=== PATIENT | female | born 1990 | race Caucasian/White ===

== ENCOUNTER → 2019-06-14 08:30 | Outpatient (BNVA) | payer MEDICAID, SELFPAY | PROVIDERS: Visit Provider Nurse Practitioner Women's Health | DX: O09.212 Supervision of pregnancy with history of pre-term labor, second trimester (principal); O23.591 Infection of other part of genital tract in pregnancy, first trimester; O98.419 Viral hepatitis complicating pregnancy, unspecified trimester; B18.2 Chronic viral hepatitis C; A59.9 Trichomoniasis, unspecified; A59.01 Trichomonal vulvovaginitis; O99.810 Abnormal glucose complicating pregnancy; O99.332 Smoking (tobacco) complicating pregnancy, second trimester | CPT/HCPCS: 84315; 87661 ==

== ENCOUNTER → 2019-07-17 08:58 | Outpatient (BNVA) | payer MEDICAID, SELFPAY | PROVIDERS: Visit Provider Obstetrics & Gynecology | DX: O09.212 Supervision of pregnancy with history of pre-term labor, second trimester (principal); Z3A.00 Weeks of gestation of pregnancy not specified | CPT/HCPCS: 76805 ==

== ENCOUNTER → 2019-07-20 08:50 | Outpatient (BNVA) | payer MEDICAID, SELFPAY | PROVIDERS: Visit Provider Obstetrics & Gynecology | DX: Z01.89 Encounter for other specified special examinations (principal) | CPT/HCPCS: 84315 ==

== ENCOUNTER → 2019-08-13 10:16 | Outpatient (BNVA) | payer MEDICAID, SELFPAY | PROVIDERS: Visit Provider Obstetrics & Gynecology | DX: O09.212 Supervision of pregnancy with history of pre-term labor, second trimester (principal); Z30.09 Encounter for other general counseling and advice on contraception | CPT/HCPCS: 82950; 84315 ==

== ENCOUNTER → 2019-08-16 08:44 | Outpatient (BNVA) | payer MEDICAID, SELFPAY | PROVIDERS: Visit Provider Obstetrics & Gynecology | DX: O09.212 Supervision of pregnancy with history of pre-term labor, second trimester (principal) | CPT/HCPCS: 82951; 82952 ==

== ENCOUNTER → 2019-09-10 08:30 | Outpatient (BNVA) | payer MEDICAID, SELFPAY | PROVIDERS: Visit Provider Obstetrics & Gynecology Female Pelvic Medicine and Reconstructive Surgery | DX: Z34.90 Encounter for supervision of normal pregnancy, unspecified, unspecified trimester (principal); O09.212 Supervision of pregnancy with history of pre-term labor, second trimester; O99.810 Abnormal glucose complicating pregnancy; O09.213 Supervision of pregnancy with history of pre-term labor, third trimester; R73.02 Impaired glucose tolerance (oral) | CPT/HCPCS: 83036; 84315; 85027 ==

== ENCOUNTER → 2019-09-27 10:44 | Outpatient (BNVA) | payer MEDICAID, SELFPAY | PROVIDERS: Visit Provider Obstetrics & Gynecology | DX: Z34.90 Encounter for supervision of normal pregnancy, unspecified, unspecified trimester (principal) | CPT/HCPCS: 76816; 84315 ==

== ENCOUNTER → 2019-10-12 08:25 | Outpatient (BNVA) | payer MEDICAID, SELFPAY | PROVIDERS: Visit Provider Obstetrics & Gynecology | DX: O09.213 Supervision of pregnancy with history of pre-term labor, third trimester (principal); N89.8 Other specified noninflammatory disorders of vagina | CPT/HCPCS: 83986; 84315 ==

== ENCOUNTER → 2019-11-02 13:23 | Outpatient (BNVA) | payer MEDICAID, SELFPAY | PROVIDERS: Visit Provider Obstetrics & Gynecology | DX: O09.213 Supervision of pregnancy with history of pre-term labor, third trimester (principal) | CPT/HCPCS: 84315; 87081 ==

== ENCOUNTER 2019-11-11 16:35 | Outpatient (CLI) | payer MEDICAID, SELFPAY ==
[2019-11-11] VITALS (14 sets, daily range): BP systolic 0–145; BP diastolic 0–81; PULSE 87–107; RESP 16; TEMP 37; BMI 41.0
--- NOTE | 2019-11-11 18:30 | P.PCN_ITS ---
Procedure/Consent Procedure Narrative: NONSTRESS TEST: [place] [facility] [place]ication: 29-year-old 3 para 2-0-0-2 at 37 weeks and 3 days, abdominal pain, possible contractions Date and time of test: 11/11/2019, 6 PM Baseline: 135 Variability: Moderate variability Accelerations: Present Decelerations: None Tocometry: Contractions every 2 to 5 minutes. INTERPRETATION: NST reactive, reassuring status, continue kick counts
== END 2019-11-11 19:28 | disposition home or self-care (01) ==
LOC: OPOB 16:37 → OBGYN 16:37
PROVIDERS: Visit Provider Obstetrics & Gynecology
DX: O26.899 Other specified pregnancy related conditions, unspecified trimester (principal); Z3A.00 Weeks of gestation of pregnancy not specified; R10.9 Unspecified abdominal pain
CPT/HCPCS: 12345; 59025; 99211

== ENCOUNTER 2019-11-13 11:50 | Outpatient (CLI) | payer MEDICAID, SELFPAY ==
[2019-11-13] VITALS (15 sets, daily range): BP systolic 0–151; BP diastolic 0–90; PULSE 61–82; RESP 17–18; BMI 41.1
[2019-11-13] MEDS: hyDROXYzine 25 mg Capsule 50 MG PO (14:28)
--- NOTE | 2019-11-13 14:35 | PM.ACPR ---
Procedure/Consent Procedure Narrative: NONSTRESS TEST: Place of test: [facility] [place] Indication: 29-year-old 3 para 2-0-0-2 at 37 weeks and 5 days, abdominal pain and vaginal spotting Date and time of test: 11/13/2019, 1 PM. Baseline: 135 Variability: Moderate variability Accelerations: Accelerations present Decelerations: No decelerations Tocometry: Irregular contractions every 2 to 6 minutes INTERPRETATION: NST reactive, reassuring status, continue kick counts
== END 2019-11-13 14:35 | disposition home or self-care (01) ==
LOC: OPOB 11:58 → OBGYN 11:59
PROVIDERS: Visit Provider Obstetrics & Gynecology
DX: O26.899 Other specified pregnancy related conditions, unspecified trimester (principal); Z3A.00 Weeks of gestation of pregnancy not specified; R10.9 Unspecified abdominal pain
CPT/HCPCS: 12345; 59025; 99211

== ENCOUNTER → 2019-11-16 13:52 | Outpatient (BNVA) | payer MEDICAID, SELFPAY | PROVIDERS: Visit Provider Obstetrics & Gynecology | DX: Z34.90 Encounter for supervision of normal pregnancy, unspecified, unspecified trimester (principal) | CPT/HCPCS: 76816; 84315 ==

== ENCOUNTER 2019-11-19 19:54 | Inpatient (IN) | payer MEDICAID, SELFPAY ==
[2019-11-19] VITALS (23 sets, daily range): BP systolic 0–145; BP diastolic 0–83; PULSE 62–109; RESP 15–17; TEMP 36.7–37.1; O2SAT 100; BMI 41.1
--- NOTE | 2019-11-19 16:47 | PC.NURSE ---
Pt off monitors at this time. Pt encouraged to ambulate until 1800. Pt instructed to return to the room or notify this nurse with any concerns or if her membranes rupture. Pt verbalized understanding.
--- NOTE | 2019-11-19 17:13 | PC.NURSE ---
Visitor policy Patient and significant other were informed of the hospital visitor policy. They both verbalized understanding.
[2019-11-19] MEDS: lactated ringers 1,000 ML 999 ML IV ×2 (20:20→21:02)
[2019-11-19 20:26] LABS: Basophils # 0.1 10^3/uL (0.0-0.1); Basophils % 0.4 %; Eosinophils # 0.1 10^3/uL (0.0-0.8); Eosinophils % 0.6 %; Hematocrit 32.9 % (37.0-47.0); Hemoglobin 10.7 g/dL (11.5-15.3); Lymphocytes # 2.2 10^3/uL (0.8-4.8); Lymphocytes % 16.2 %; Mean Corpuscular HGB Conc 32.5 g/dL (30.0-36.0); Mean Corpuscular Hemoglobin 29.3 pg (28.0-34.0); Mean Corpuscular Volume 90.1 fL (81-99); Mean Platelet Volume 11.2 fL (7.4-10.4); Monocytes # 0.6 10^3/uL (0.2-0.9); Monocytes % 4.7 %; Neutrophils # 10.5 10^3/uL (1.8-7.7); Neutrophils % 77.4 %; Nucleated Red Blood Cells % 0 %; Platelet Count 260 10^3/cmm (130-400); Red Blood Count 3.65 10^6/uL (4.1-5.3); Red Cell Distribution Width 14.5 % (12.1-15.1); White Blood Count 13.5 10^3/uL (4.0-10.0)
[2019-11-19] MEDS: ondansetron 2 mg/ML SDV 2 mL 4 MG IVP (21:01)
[2019-11-19] MEDS: oxytocin 30 UNIT/500 ML BAG 600 UNIT IV (21:41)
--- NOTE | 2019-11-19 21:45 | PM.DELIVERY ---
Delivery Note: Date of delivery: November 19, 2019 Pre-delivery diagnoses: term . desire permanent sterilization Post-delivery diagnoses: term delivered. desire permanent sterilization Procedure: spontaneous vaginal delivery Op report anesthesia: None Delivering Physician: Frederick uJng M.D. Estimated blood loss (mL): 500 Delivery: The patient was noted to be complete and pushing, so was placed in the dorsal lithotomy position, prepped and draped in the usual sterile fashion for a vaginal delivery. Pt. Noted to have epidural anesthesia. At 2020 the patient delivered a viable at 38 weeks male infant weighing 3221 g with scores of 9 and 9 at one and five minutes, respectively. The vertex was delivered spontaneously over intact perineum. The patient was asked to push and the head delivered spontaneously in the LIEN position, over an intact perineum. A nuchal cord was checked and none noted. The anterior shoulder delivered easily and the posterior shoulder followed. The remainder of the was easily delivered and the oropharynx and nasopharynx was bulb suctioned. The was noted to have spontaneous cry and spontaneous movement of all four extremities. The cord was clamped x 2 and cut and noted to have 2 arteries and one vein. The was passed to the mother's abdomen where nursing personnel were in attendance. Cord blood sample was then obtained. The placenta delivered intact spontaneously and the uterus was explored. 20 units of Pitocin was placed in the IV bag to firm the uterus. Examination of the cervix and vaginal vault did not reveal any lacerations. A vaginal pack was then placed. Examination of the perineum showed no lacerations. The vaginal pack was then removed. The patient tolerated this procedure well, and recovered in L&D with her to the OB [facility]. All sponge and needle counts were correct. 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
--- NOTE | 2019-11-19 21:50 | P.PN_ITS ---
Subjective Subjective: Interval history: 29-year-old female status post spontaneous vaginal delivery without complications. Desire permanent sterilization. Vitals/I&O/Wt Last Vital Signs Temp 98.5 F 11/19/19 19:45 Pulse 72 11/19/19 21:44 Resp 17 11/19/19 19:45 BP 134/69 11/19/19 21:44 Pulse Ox 100 11/19/19 16:31 11/19/19 11/19/19 11/19/19 06:59 14:59 22:59 Intake Total 939.3 / 939.3 Balance 939.3 / 939.3 Weight last 48 hrs Weight 108.862 kg Physical Exam Narrative: EXAM NARRATIVE: GA; alert and oriented x 3 HEENT: normal Breasts: engorged Nipples - skin intact Lungs; clear to auscultation Heart: regular rhythm, no murmurs. Abd: Appropriately tender. BS+. Uterine fundus below umbilicus. No Fundal Tenderness. Perineum: normal lochia. Extremities: no edema, no cyanosis, no tenderness. Data : 11/19/19 20:05 A&P Assessment and plan (1) Term delivered: containers vaginal delivery without complications. Desire permanent sterilization Status: Acute (2) Sterilization education: 29-year-old female -2-1-3 status post spontaneous vaginal delivery desire permanent sterilization requesting tubal ligation. The patient was counseled regarding all methods of contraception, risk and complications. She elected to continue to proceed with the tubal ligation as planned. partial salpingectomy is associated with lower failure rates than interval tubal occlusions done via laparoscopy. She was counseled regarding the procedure, alternative, risks and complications. Complications of tubal sterilization include problems like but not limited to anesthesia, hemorrhage, organ damage, and mortality. Although pregnancies after a sterilization procedure are rare, there is substantial risk that any post- sterilization could be ectopic. The overall failure rate is on the ord er of 0.5% in the first year but a study showed that sterilization failures vary by both age at sterilization and the method used. The study also found that the risks of accumulate over time, and that for women aged 18 to 27 years, failure rates can be as high as 5% with bipolar coagulation and the spring clip. The patient was informed of the risks and benefits of the procedure. Risks in cluded but were not limited to bleeding, infection, and injury to internal organs. The patient was counseled on the risk of sterilization failure. The patient was informed that in the event a occurs the risk of ectopic is increased. The patient was counseled that bilateral tubal ligation is intended to be permanent and nonreversible. She was also counseled that there are nonpermanent forms of control available to her. The patient expressed understanding of the risks involved, all questions were answered, and the patient consented to the procedure she had signed informed consent. 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
[2019-11-19] MEDS: ketorolac 30 mg/mL INJ IVP (22:36)
[2019-11-20] VITALS (15 sets, daily range): BP systolic 96–152; BP diastolic 51–92; PULSE 62–127; RESP 14–22; TEMP 36.5–37; O2SAT 95–99
[2019-11-20] MEDS: lanolin oint 7 gm 1 APPLIC TOPICAL (00:07)
[2019-11-20] MEDS: benzocaine-menthol 78 gm Canister 1 SPRAY TOPICAL (00:07)
[2019-11-20 01:04] LABS: Amphetamines Screen Urine Negative (Negative); Barbiturates Screen Urine Negative (Negative); Benzodiazepines Screen Urine Negative (Negative); Cocaine Screen Urine Negative (Negative); Opiate Screen Urine Negative (Negative); PCP Screen Urine Negative (Negative); THC Screen Urine Negative (Negative)
[2019-11-20] MEDS: lactated ringers 1,000 ML 999 ML IV ×3 (05:41→07:16)
--- NOTE | 2019-11-20 06:47 | PC.NURSE ---
patient taken to [facility] in stable condition in wheelchair by [facility]
--- NOTE | 2019-11-20 07:01 | P.ANESASSM_ITS ---
Pre-Anesthetic Assessment Pre-Anesthetic Assessment: Height/Weight: Height 1.63 m Weight 108.862 kg Temp Pulse Resp BP Pulse Ox 98.6 F 85 17 117/70 100 11/20/19 05:45 11/20/19 05:45 11/20/19 05:45 11/20/19 05:45 11/19/19 16:31 Preop Diagnosis: desire permanent sterilization Proposed Procedure: Operation Date: 11/20/19 07:00 Proposed Procedures p Bilateral Tubal Ligation(Not Applicable) - Frederick Jung MD Last intake: Intake Last Liquid Date 11/19/19 Last Liquid Time 23:45 Last Solid Date 11/19/19 Last Solid Time 23:30 Social: Social History: Tobacco and No alcohol Exam: Pre-Anes Outpt Exam: alert, oriented x 3, clear to auscultation bilaterally and regular rate & rhythm Airway: Submandibular: WNL Cervical ROM: WNL MP: 1 Dentition: Full and Other (teeth ok) History/ROS: No significant history except as noted Pulmonary: Pulmonary: None reported CV/HEM: CV/HEM: None reported : : None reported Hepatic: Hepatic: Hepatitis (C) GI: GI: GERD Metabolic: Metabolic: Morbid obesity Musc/skel: Musc/skel: None reported Neuropsych: Neuropsych: None reported Anesthetic Plan: ASA status: 2 Anesthesia: Anesthesia Evaluation and General Risk of > 500 ml blood loss (7ml/kg in children): No Meds/Allergies Current Medications: Current Medications Generic Name Dose Route Start Last Admin Trade Name Freq PRN Reason Stop Dose Admin Benzocaine 1 spray 11/19/19 21:43 11/20/19 00:07 Dermoplast TOPICAL 1 can PRN PRN Administration PAIN Oxytocin 30 unit in 500 ml s @ 600 mls/hr 11/19/19 19:45 11/19/19 23:30 Pitocin IV Infused .Q50M PRN Titration After delivery of infant Protocol Lactated Ringer's 1,000 mls @ 999 m ls/hr 11/19/19 19:47 11/20/19 06:48 Lactated Ringers IV 999 mls/hr .Q1H1M PRN Administration ANESTHESIA Lanolin 1 applic 11/19/19 21:43 11/20/19 00:07 Lanolin Oint TOPICAL 1 tube PRN PRN Administration DRYNESS Ondansetron HCl 4 mg 11/19/19 19:45 11/19/19 21:01 Zofran IVP 4 mg Q4H PRN Administration NAUSEA AND VOMITI NG PFSH Anesthesia PFSH: Medical History Hepatitis C infection 05/01/2019: Hepatitis C antibody positive. 05/10/2019: Hepatitis C quantitative PCR: Negative. History of delivery First baby delivered at 36 weeks Second baby delivered at 34 weeks Both pregnancies Kat was used Trichomonal vaginitis during in first trimester Surgical History No history of previous surgery Family History Grandmother Diabetes maternal Family/Other Patient denies medical problems Denies family history of: breast/ovarian/uterine/colon/prostate cancer Social History Smoking and tobacco status: current every day smoker cigarettes [ Other cigarette details: 3 per day ] Alcohol intake: never Female Reproductive History: : 3 Data Anesthesia CBC & Chem 7: 11/19/19 20:05 Other Labs: Laboratory Results - last 48 hr 11/19/19 11/20/19 20:05 00:30 WBC 13.5 H RBC 3.65 L Hgb 10.7 L Hct 32.9 L MCV 90.1 MCH 29.3 MCHC 32.5 RDW 14.5 Plt Count 260 MPV 11.2 H Neut % (Auto) 77.4 Lymph % (Auto) 16.2 [place] % (Auto) 4.7 Eos % (Auto) 0.6 Baso % (Auto) 0.4 Neut # (Auto) 10.5 H Lymph # (Auto) 2.2 [place] # (Auto) 0.6 Eos # (Auto) 0.1 Baso # (Auto) 0.1 Nucleated RBC % (auto) 0 Nucleated RBCs # 0.0 Urine Opiates Screen Negative Ur Barbiturates Screen Negative Ur Phencyclidine Scrn Negative Ur Amphetamines Screen Negative U Benzodiazepines Scrn Negative Urine Cocaine Screen Negative U Marijuana (THC) Screen Negative Cardiac Studies: No Data to Display
--- NOTE | 2019-11-20 07:08 | PC.NURSE ---
Report called to [facility] at this time in main OR.
[2019-11-20] MEDS: citric acid-sodium citrate 30 mL UDC PO (07:16)
[2019-11-20] MEDS: famotidine 20 mg/2 mL INJ IVP (07:17)
[2019-11-20] MEDS: metoclopramide 5 mg/mL SDV 2 mL 10 MG IVP (07:17)
--- NOTE | 2019-11-20 08:16 | P.OP_ITS ---
Operative Report Date of procedure: November 20, 2019 Pre-op Diagnosis: desire permanent sterilization, s/p spontaneous vaginal delivery Post-op diagnosis: same Post-op Findings: Normal left and right fallopian tube Procedure Done: bilateral partial salpingectomy Specimens removed/disposition: Left and right fallopian tube Surgeon: Frederick Jung Anesthesia: General Estimated blood loss (mL): 5 IV fluids (mL): 300 Complications: none Condition: stable Disposition: PACU Brief History: 29-year-old female status post continues vaginal delivery Procedure: After assuring informed consent. The patient was informed of the risks and benefits of the procedure. Risks included but were not limited to bleeding, infection, and injury to internal organs. The patient was counseled on the risk of sterilization failure. The patient was informed that in the event a occurs the risk of ectopic is increased. The patient was counseled that bilateral tubal ligation is intended to be permanent and nonreversible. She was also counseled that there are nonpermanent forms of control available to her. The patient expressed understanding of the risks involved, all questions were answered, and the patient consented to the proce dure. The patient was taken to the operating room and general anesthesia administered. Time-out procedure was performed. A small, transverse, infraumbilical skin incision was made with a scalpel, and the incision was carried down through the underlying fascia until the peritoneum was identified and entered. The left fallopian tube was identified, brought into the incision and grasped with a Pawan clamp. The tube was then followed out to the fimbria. An avascular midsection of the fallopian tube was grasped with a Huntington clamp and brought into a knuckle. The tube was doubly ligated with an O-plain suture and transected. The specimen was sent to pathology. Excellent hemostasis was noted, and the tube was returned to the abdomen. The same procedure was performed on the opposite fallopian tube. The fascia was then closed with O- Vicryl in a single layer. The skin was closed with 3-O Monocryl in a subcuticular fashion, and bioadhesive. The patient tolerated the procedure well. Needle and sponge counts were correct times 3.
[2019-11-20] MEDS: ondansetron 2 mg/ML SDV 2 mL 4 MG IVP ×2 (08:21→08:37)
[2019-11-20] MEDS: prenatal vitamin Capsule 1 CAP PO (09:10)
[2019-11-20] MEDS: docusate sodium 100 mg Capsule PO ×2 (09:11→17:43)
--- NOTE | 2019-11-20 14:23 | PC.NURSE ---
1330 baby sleeping in crib, taken for first bath. tolerated bath well. soothed easily. small meconium stool produced . returned to parents at 1400, bands checked and confirmed match.
[2019-11-21 04:11] VITALS: BP 104/67; PULSE 60; RESP 16; TEMP 36.6; O2SAT 98
[2019-11-21 06:01] LABS: Mean Corpuscular HGB Conc 32.1 g/dL (30.0-36.0); Mean Corpuscular Hemoglobin 29.5 pg (28.0-34.0); Mean Corpuscular Volume 91.8 fL (81-99); Platelet Count 207 10^3/cmm (130-400); Red Blood Count 3.05 10^6/uL (4.1-5.3); Red Cell Distribution Width 14.9 % (12.1-15.1); White Blood Count 9.3 10^3/uL (4.0-10.0)
[2019-11-21] MEDS: prenatal vitamin Capsule 1 CAP PO (08:07)
[2019-11-21] MEDS: docusate sodium 100 mg Capsule PO (08:08)
[2019-11-21 09:07] VITALS: BP 108/64; PULSE 62; RESP 16; TEMP 36.6
--- NOTE | 2019-11-21 14:22 | P.DS_ITS ---
Discharge Providers BOX MAKER Date of Admission: 11/19/19 19:54 Date of Discharge: 11/21/19 Attending Provider at Admission: Frederick Jung MD Attending Provider at Discharge: Frederick Jung MD Diagnoses at Discharge Discharge Diagnosis (1) Term delivered: Status: Acute (2) Sterilization education: Status: Acute Reason for Visit Reason for Visit: abd pain Brief History: Active labor Hospital Course Hospital Course: 29-year-old female with an estimated gestational age at 38 weeks +3 days came to labor and delivery complaining of contractions. On observation cervical changes was noted and she was admitted in active labor. She progressed to have a spontaneous vaginal delivery of male infant, [id number] g, Apgars 9 and 9 without complications. She has signed an informed consent for desire sterilization. She was taken to the OR the following day and a bilateral tubal salpingectomy via modified [place] was performed without complications. Post op observation Uneventful. She is afebrile and hemodynamically stable. Tolerating diet well. Ambulating without difficulty. Information Peripartum Data: Infant Delivery Method: Vaginal Physical Exam Narrative: EXAM NARRATIVE: GA; alert and oriented x 3 HEENT: normal Breasts: engorged Nipples - skin intact Lungs; clear to auscultation Heart: regular rhythm, no murmurs. Abd: Appropriately tender. BS+. Uterine fundus below umbilicus. No Fundal Tenderness. Perineum: normal lochia. Extremities: no edema, no cyanosis, no tenderness. Discharge Data Data Completed and Pending: Completed Studies During Hospitalization Category Date Time Status Pathology: Surgic al [PTH] Routine Pth 11/20/19 08:05 Completed Labs from last 24 hours 11/21/19 05:20 WBC 9.3 RBC 3.05 L Hgb 9.0 L Hct 28.0 L MCV 91.8 MCH 29.5 MCHC 32.1 RDW 14.9 Plt Count 207 MPV 11.0 H Laboratory Tests 11/19/19 20:05 WBC 13.5 H Hgb 10.7 L Hct 32.9 L Plt Count 260 Vitals: Last Vital Signs Temp 97.8 F 11/21/19 09:07 Pulse 62 11/21/19 09:07 Resp 16 11/21/19 09:07 BP 108/64 11/21/19 09:07 Pulse Ox 98 11/21/19 04:11 Discharge Plan Discharge Patient Disposition: Home, Self-Care Condition: Stable Prescriptions: New acetaminophen 325 mg Tablet 650 mg PO Q6H PRN (Reason: Mild pain or temp > 100.4) Qty: 60 RF: 0 ibuprofen 800 mg Tablet 800 mg PO TID Qty: 60 RF: 0 docusate sodium 100 mg Capsule 100 mg PO BID Qty: 60 RF: 0 ferrous sulfate 325 mg (65 mg iron) tablet 325 mg PO BID Qty: 60 RF: 0 Continued prenat.vits,dave,jlb-[id number]-dwpfv Tablet 1 tab PO DAILY RF: 0 No Action (DME) breast pump Device See Rx Instructions .ROUTE .MEDSUPPLY Qty: 1 RF: 0 Discharge Orders: Discharge Order (Routine); Ordered 11/21/19 Ordered By: Frederick Jung Referrals: Frederick Jung MD [Physician] - 2 weeks (* Your 2 week incision check is 12/04/2019 at 10:00am. * Your 6 week follow up appointment is on 01/14/2020 at 8:30am. ) Discharge Diet: Regular Discharge Activity: Increase activity as tolerated Patient Instructions: OB Discharge Report, OB Food/Drug Interaction Guide, OB Home Care, OB Proud Parent Packet, OB Vaginal Deliveries - [facility] Activity Restrictions/Additional Instructions: Pelvic rest for 6 weeks (no sex, no tampons, no vaginal douches). Return to the emergency room if any fever, increased bleeding or pain. 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
[2019-11-21 14:45] VITALS: BP 112/67; PULSE 64; RESP 18; TEMP 36.8
[2019-11-21 15:03] VITALS: BP 112/67; PULSE 64; RESP 18; TEMP 36.8
== END 2019-11-21 14:55 | disposition home or self-care (01) | DRG 798 ==
LOC: OPOB 19:54 → OBGYN 19:54
PROVIDERS: Admitting Provider Obstetrics & Gynecology; Visit Provider Obstetrics & Gynecology
PROC: 0U574ZZ Destruction of Bilateral Fallopian Tubes, Percutaneous Endoscopic Approach (ICD-10-PCS; CPT 58605; principal; 2019-11-20 07:00)
DX: O98.42 Viral hepatitis complicating childbirth (principal); Z37.0 Single live birth; B18.2 Chronic viral hepatitis C; O99.334 Smoking (tobacco) complicating childbirth; F17.210 Nicotine dependence, cigarettes, uncomplicated; Z3A.38 38 weeks gestation of pregnancy; Z30.2 Encounter for sterilization
CPT/HCPCS: 12345; 36415; 59025; 59409; 80306; 85025; 85027; 88302; 96375; 99211; J1885; J2001; J2405; J2704; J2765; J3010; J3490

== ENCOUNTER 2020-01-13 11:18 | Emergency (ER) | payer MEDICAID, SELFPAY ==
[2020-01-13 11:28] VITALS: BP 116/72; PULSE 82; RESP 14; TEMP 36.9; O2SAT 99; BMI 37.2
--- NOTE | 2020-01-13 11:57 | ED_ITS ---
HPI - Abdominal Pain General: Chief Complaint: Abdominal Pain Stated Complaint: ABD PAIN Time Seen by Provider: 01/13/20 11:53 Source: patient Mode of arrival: ambulatory Limitations: no limitations History of Present Illness: HPI narrative: 29-year-old female who states she has been having bilateral flank pain over the last week. States intermittent nature and when her pain is at its worse it is sharp and a 9 out of 10. States her pain is currently 5 out of 10. She did give 7 weeks ago. Denies any vomiting or diarrhea. Denies fever. Associated Symptoms: Denies chills, dysuria and fever(s) Review of Systems Const: Denies: fever(s), chills, body aches or change in appetite Eyes: Denies: blurry vision or eye discomfort ENMT: Denies: throat pain or dental pain Card: Denies: chest pain Resp: Denies: dyspnea GI: Reports: abdominal pain : Denies: dysuria Musc: Denies: neck pain or back pain Skin/Breast: Denies: rash Neuro: Denies: headache(s) Psych: Denies: depression Samir/Lymph: Denies: easy bruising All/Imm: Denies: urticaria PFSH ED PFSH: Medical History Aftercare following surgery of the genitourinary system Hepatitis C infection 05/01/2019: Hepatitis C antibody positive. 05/10/2019: Hepatitis C quantitative PCR: Negative. History of delivery First baby delivered at 36 weeks Second baby delivered at 34 weeks Both pregnancies [place] was used Trichomonal vaginitis during in first trimester Surgical History No history of previous surgery Family History Grandmother Diabetes maternal Family/Other Patient denies medical problems Denies family history of: breast/ovarian/uterine/colon/prostate cancer Social History Smoking and tobacco status: current every day smoker cigarettes [ Other cigarette details: 3 per day ] Alcohol intake: never Physical Exam Const: COMMON NORMALS: no acute distress, patient oriented x3 and healthy appearing HENMT: COMMON NORMALS: normocephalic and atraumatic HEAD & SCALP: n ormocephalic and atraumatic Eye: COMMON NORMALS: Equal, round and reactive pupils present and EOMs intact bilaterally PUPIL: Yes Equal, round and reactive pupils present Neck/C-Spine: COMMON NORMALS: full ROM and supple Chest: COMMONS NORMALS: normal inspection of the chest and normal palpation of entire chest wall Resp: COMMON NORMALS: normal respiratory effort, No retractions, No use of accessory muscles and clear to auscultation bilaterally AUSCULTATION: clear to auscultation bilaterally Cardio: COMMON NORMALS: regular rate, regular rhythm and No murmurs present (Cardio) RATE: regular rate RHYTHM: regular rhythm GI: COMMON NORMALS: Normal to inspection, nondistended, normoactive bowel sounds present, Soft to palpation, non-tender and no masses PALPATION: Yes Soft to palpation Back/Pelvis: OTHER: bilateral lower back tenderness Extremity: COMMON NORMALS: normal to inspection and full ROM Neuro: COMMON NORMALS: patient oriented x3, moves all extremities and no focal motor deficits Psych: COMMON NORMALS: mental status grossly normal, Normal thought process present and cooperative THOUGHT PROCESS: Normal thought process present Skin: COMMON NORMALS: no rashes or lesions noted and no wounds GENERAL SKIN EXAM: no rashes or lesions noted Course Vital Signs: Vital signs: Vital Signs Temperature 98.5 F 01/13/20 11:28 Pulse Rate 82 01/13/20 11:28 Respiratory Rate 18 01/13/20 13:37 Blood Pressure 116/72 01/13/20 11:28 Pulse Oximetry 100 01/13/20 13:37 MDM - Abdominal Pain MDM Narrative: Medical decision making narrative: Patient presents with abdominal pain. CT scan here is normal. Her white count and electrolytes are normal as well. She feels much improved here. Abdominal exam is benign. Will prescribe her Naprosyn and Zofran. She is to follow-up with primary care doctor in 3 to 5 days return if worsening. Lab Data: Labs: Lab Results 01/13/20 01/13/20 01/13/20 Range/Units 12:10 12:10 12:30 WBC Cancelled Corrected WBC Cancelled RBC Cancelled Hgb Cancelled Hct Cancelled MCV Cancelled MCH Cancelled MCHC Cancelled RDW Cancelled Plt Count Cancelled MPV Cancelled Gran % Cancelled Neut % (Auto) Cancelled Lymph % (Auto) Cancelled [place] % (Auto) Cancelled Eos % (Auto) Cancelled Baso % (Auto) Cancelled Neut # (Auto) Cancelled Lymph # (Auto) Cancelled [place] # (Auto) Cancelled Eos # (Auto) Cancelled Baso # (Auto) Cancelled Absolute Gran (aut o) Cancelled Nucleated RBC % (a uto) Cancelled Nucleated RBCs # Cancelled Sodium Potassium Chloride Carbon Dioxide Anion Gap BUN Creatinine GFR Calculation Glucose Calculated Osmolal ity Calcium Total Bilirubin AST ALT Alkaline Phosphata se Total Protein Albumin Globulin Lipase HCG, Qual Negative (Negative) Urine Color Yellow (Yellow) Urine Appearance Sl hazy (CLEAR) Urine pH 6 (5-7) Ur Specific Gravit y 1.010 (1.005-1.030) Urine Protein Neg (Negative) Urine Glucose (UA) Norm (Normal) Urine Ketones Negative (Negative) Urine Blood Neg (Negative) Urine Nitrate Negative (Negative) Urine Bilirubin Neg (NEGATIVE) Urine Urobilinogen Norm (Negative) mg/dL Ur Leukocyte Shala ase Negative (Negative) Urine RBC None (0-2) /hpf Urine WBC Rare (0-5) /hpf Ur Squamous Epith Cells 15-25 H (0-5) Amorphous Sediment Not Reportable Urine Bacteria 1+ H (NONE) Urine Mucus 1+ 01/13/20 01/13/20 01/13/20 Range/Units 12:30 13:02 13:02 WBC 8.5 Corrected WBC RBC 4.08 L Hgb 11.7 Hct 37.4 MCV 91.7 MCH 28.7 MCHC 31.3 RDW 13.8 Plt Count 310 MPV 10.7 H Gran % Neut % (Auto) 60.5 Lymph % (Auto) 27.9 [place] % (Auto) 5.3 Eos % (Auto) 5.3 Baso % (Auto) 0.6 Neut # (Auto) 5.18 Lymph # (Auto) 2.4 [place] # (Auto) 0.5 Eos # (Auto) 0.5 Baso # (Auto) 0.1 Absolute Gran (aut o) Nucleated RBC % (a uto) 0 Nucleated RBCs # 0.0 Sodium Cancelled 138 Potassium Cancelled 4.0 Chloride Cancelled 105 Carbon Dioxide Cancelled 23 Anion Gap Cancelled 14.0 BUN Cancelled 10 Creatinine Cancelled 0.8 GFR Calculation Cancelled 83.7 L Glucose Cancelled 90 Calculated Osmolal ity Cancelled 282 L Calcium Cancelled 9.4 Total Bilirubin Cancelled 0.2 AST Cancelled 13 ALT Cancelled 11 Alkaline Phosphata se Cancelled 94 Total Protein Cancelled 6.2 L Albumin Cancelled 3.9 Globulin Cancelled 2.3 Lipase Cancelled 22 HCG, Qual (Negative) Urine Color (Yellow) Urine Appearance (CLEAR) Urine pH (5-7) Ur Specific Gravit y (1.005-1.030) Urine Protein (Negative) Urine Glucose (UA) (Normal) Urine Ketones (Negative) Urine Blood (Negative) Urine Nitrate (Negative) Urine Bilirubin (NEGATIVE) Urine Urobilinogen (Negative) mg/dL Ur Leukocyte Shala ase (Negative) Urine RBC (0-2) /hpf Urine WBC (0-5) /hpf Ur Squamous Epith Cells (0-5) Amorphous Sediment Urine Bacteria (NONE) Urine Mucus Imaging Data ^: CT Abd/Pel: Radiologist's impression: [place] [address] CT Scan Report Signed Patient: Ariana Curtis Unit #: [id number] : 1990 Age/Sex: 29 / F ADM Date: 01/13/20 Loc: ER Room/Bed: Attending Dr: Ordering Provider/Ordering MD: Scott Miner MD Date of Service: 01/13/20 Procedure(s): CT kidney stone 47587 Accession Number(s): [id number] Report Number: [id number] PROCEDURE INFORMATION: Exam: CT Abdomen And Pelvis Without Contrast Exam date and time: 01/13/2020 12:14 PM Age: 29 years old Clinical indication: Abdominal pain; Right; Prior surgery; Surgery date: 1-6 months; Surgery type: Tubal after last , RT flank pain/rlq x3 days, PT does have a HX of kidney stones x10 yrs. TECHNIQUE: Imaging protocol: Computed tomography of the abdomen and pelvis without contrast. Radiation optimization: All CT scans at this facility use at least one of these dose optimization techniques: automated exposure control; mA and/or kV adjustment per patient size (includes targeted exams where dose is matched to clinical indication); or iterative reconstruction. COMPARISON: [place] [address] 11/16/2019 1:52 PM RADIATION DOSE METRICS: Total DLP (mGy-cm): 1838.79 FINDINGS: Liver: Normal. No mass. Gallbladder and bile ducts: Tiny gallstones are present in the gallbladder. No biliary ductal dilatation. Pancreas: Normal. No ductal dilation. Spleen: Normal. No splenomegaly. Adrenals: Normal. No mass. Kidneys and ureters: Normal. No renal stone or hydronephrosis. Stomach and bowel: Wall thickening is observed in the ascending and descending colon. No intestinal obstruction. Diverticulosis coli is seen, without evidence of diverticulitis. Appendix: No evidence of appendicitis. Intraperitoneal space: Trace free fluid in the pelvis is likely physiologic. No free air. Vasculature: Unremarkable. No abdominal aortic aneurysm. Lymph nodes: Unremarkable. No enlarged lymph nodes. Bladder: Mild urinary bladder wall thickening is noted. Reproductive: The uterus and ovaries appear normal. Bones/joints: Unremarkable. No acute fracture. Soft tissues: A small umbilical hernia containing fat is noted. CT/CT kidney stone 24205 IMPRESSION: 1. Possible mild colitis. No intestinal obstruction. No renal stone is seen. 2. Diverticulosis coli. No evidence of diverticulitis. 3. Cholelithiasis. Discharge Plan Discharge Patient Disposition: Home Clinical Impression: Abdominal pain Qualifiers: Abdominal location: generalized Qualified Code(s): R10.84 - Generalized abdominal pain Condition: Stable Prescriptions: New ondansetron 4 mg tablet,disintegrating 4 mg PO Q6H PRN (Reason: nausea and vomiting) Qty: 14 RF: 0 Naprosyn 500 mg tablet 500 mg PO BID PRN (Reason: pain) Qty: 20 RF: 0 No Action prenat.vits,dave,adi-yhwb-qawoc Tablet 1 tab PO DAILY RF: 0 ferrous sulfate 325 mg (65 mg iron) tablet 325 mg PO DAILY RF: 0 Discharge Orders: Discharge Order (Routine); Ordered 01/13/20 Ordered By: Scott Miner Discharge Diet: Advance as tolerated Discharge Activity: Resume usual activity Patient Instructions: Abdominal Pain (ED) Coding Level of Care Code ED Specialty Foods Cook for Chg Fwd Exam Comprehensive
[2020-01-13 12:22] LABS: HCG Qualitative Urine. Negative (Negative)
[2020-01-13 12:35] LABS: Bilirubin Urine Neg (NEGATIVE); Blood Urine Neg (Negative); Glucose Urine UA Norm (Normal); Ketones Urine Negative (Negative); Nitrate Urine Negative (Negative); Protein Urine Neg (Negative); Urine Appearance SL Hazy (CLEAR); Urine Color Yellow (Yellow); pH Urine 6 (5-7)
[2020-01-13 12:36] LABS: Add Urine Microscopic? YES; Bacteria Urine 1+; Leukocyte Esterase Urine Negative (Negative); Squamous Epithelial Cell Urine 15-25 (0-5); Urobilinogen Urine Norm (Negative); WBC Urine RARE /hpf (0-5)
[2020-01-13 12:37] LABS: Add Urine Culture? No; Mucus Urine 1+
[2020-01-13 12:40] VITALS: RESP 17; O2SAT 98
[2020-01-13] MEDS: morphine 4 mg/mL SDV 1 mL IVP ×2 (12:40→13:37)
[2020-01-13] MEDS: ondansetron 2 mg/ML SDV 2 mL 4 MG IVP (12:41)
[2020-01-13 13:15] LABS: Basophils # 0.1 10^3/uL (0.0-0.1); Basophils % 0.6 %; Eosinophils # 0.5 10^3/uL (0.0-0.8); Eosinophils % 5.3 %; Hematocrit 37.4 % (37.0-47.0); Hemoglobin 11.7 g/dL (11.5-15.3); Lymphocytes # 2.4 10^3/uL (0.8-4.8); Lymphocytes % 27.9 %; Mean Corpuscular HGB Conc 31.3 g/dL (30.0-36.0); Mean Corpuscular Hemoglobin 28.7 pg (28.0-34.0); Mean Corpuscular Volume 91.7 fL (81-99); Mean Platelet Volume 10.7 fL (7.4-10.4); Monocytes # 0.5 10^3/uL (0.2-0.9); Monocytes % 5.3 %; Neutrophils # 5.18 10^3/uL (1.8-7.7); Neutrophils % 60.5 %; Nucleated Red Blood Cells % 0 %; Platelet Count 310 10^3/cmm (130-400); Red Blood Count 4.08 10^6/uL (4.1-5.3); Red Cell Distribution Width 13.8 % (12.1-15.1); White Blood Count 8.5 10^3/uL (4.0-10.0)
[2020-01-13 13:36] LABS: Alanine Aminotransferase 11 U/L (0-33); Albumin Level 3.9 g/dL (3.5-5.2); Alkaline Phosphatase 94 IU/L (35-105); Aspartate Amino Transferase 13 U/L (0-32); Blood Urea Nitrogen 10 mg/dL (6-20); Calcium 9.4 mg/dL (8.5-10.5); Carbon Dioxide 23 mmol/L (22-29); Chloride 105 mmol/L (98-107); Globulin 2.3 g/dL (1.3-4.6); Glomerular Filtration Rate 83.7 mL/min (90-130); Glucose 90 mg/dL (65-115); Lipase 22 U/L (13-60); Osmolality Calculated 282 mOsm/kg (285-295); Sodium 138 mmol/L (136-145); Total Bilirubin 0.2 mg/dL (0.15-1.2); Total Protein 6.2 g/dL (6.6-8.7)
[2020-01-13 13:37] VITALS: RESP 18; O2SAT 100
[2020-01-13] MEDS: ketorolac 30 mg/mL INJ 15 MG IVP (14:14)
[2020-01-13 14:25] VITALS: BP 109/66; PULSE 87; RESP 18; O2SAT 98
== END 2020-01-13 14:27 | disposition home or self-care (01) ==
PROVIDERS: Emergency Provider Emergency Medicine
DX: R10.84 Generalized abdominal pain (principal); Z86.19 Personal history of other infectious and parasitic diseases; F17.210 Nicotine dependence, cigarettes, uncomplicated
CPT/HCPCS: 12345; 36415; 74176; 80053; 81001; 81025; 83690; 85025; 96374; 96375; 96376; 99282; 99284; J1885; J2270; J2405

== ENCOUNTER → 2020-09-08 15:13 | Outpatient (BNVA) | payer MEDICAID, SELFPAY | DX: J40 Bronchitis, not specified as acute or chronic (principal) | CPT/HCPCS: 71046 ==

== ENCOUNTER 2021-01-30 19:16 | Emergency (ER) | payer MEDICAID, SELFPAY ==
[2021-01-30 19:49] VITALS: BP 115/74; PULSE 61; RESP 18; TEMP 36.7; O2SAT 96; BMI 28.3
[2021-01-30 21:54] VITALS: BP 126/76; PULSE 54; RESP 18; TEMP 36.7; O2SAT 99
--- NOTE | 2021-01-30 22:52 | ED_ITS ---
HPI - Dental/Oral General: Chief complaint: Dental/Oral Stated complaint: Absess under left eye Time Seen by Provider: 01/30/21 21:37 History of Present Illness: HPI Narrative: 30-year-old female with left upper gingival and dental pain and swelling increasing over the past several days. She denies any fever. She states the pain is become much more intense. She has a partial implant in this area, that she states was not fitting right, and needed adjusted. She believes it is irritated causing the abscess. MD Complaint: tooth pain Teeth map: 1. Onset (ago): day(s) Duration: worsening Severity: moderate Relieving factors: NSAIDs Exacerbating factors: chewing Context: other Associated symptoms: Reports gum swelling; Denies ear or mastoid pain, fever(s), odynophagia, sore throat or tongue swelling Review of Systems Const: Denies: fever(s) ENMT: Denies: odynophagia or ear or mastoid pain Resp: Denies: dyspnea, productive cough or non-productive cough GI: Denies: vomiting All/Imm: Denies: tongue swelling PFSH ED PFSH: Medical History (Updated 01/30/21 @ 23:23 by Sebastian Reyes DO) Aftercare following surgery of the genitourinary system Hepatitis C infection 05/01/2019: Hepatitis C antibody positive. 05/10/2019: Hepatitis C quantitative PCR: Negative. History of delivery First baby delivered at 36 weeks Second baby delivered at 34 weeks Both pregnancies [place] was used Trichomonal vaginitis during in first trimester Surgical History No history of previous surgery Family History Grandmother Diabetes maternal Family/Other Patient denies medical problems Denies family history of: breast/ovarian/uterine/colon/prostate cancer Social History Smoking and tobacco status: current every day smoker Alcohol intake: never Physical Exam Const: GENERAL APPEARANCE: cooperative, well kempt and in distress (In pain) ORIENTATION/CONSCIOUSNESS: Yes awake, Yes oriented to person, Yes oriented to place and Yes oriented to time HENMT: COMMON NORMALS: normocephalic and Normal external nose present HEAD & SCALP: normocephalic FACE & SINUS: edema (Small area of swelling left lower maxillary); no crepitus, no ecchymosis and no erythema NOSE: Normal external nose present and Normal nares present MOUTH: tongue normal TEETH & GINGIVA: Yes abnormal tooth and associated gingiva OTHER: Upper anterior left partial is removed. There is gingival swelling, redness, and buccal swelling as well. There is no pointing noted of the abscess. There is clear swelling in the area. Chest: COMMONS NORMALS: normal inspection of the chest Resp: COMMON NORMALS: normal respiratory effort and No use of accessory muscles Cardio: COMMON NORMALS: regular rate RATE: regular rate Neuro: SENSORIUM/ORIENTATION: Yes oriented to person, Yes oriented to place and Yes oriented to time Psych: APPEARANCE: Yes well kempt Course Vital Signs: Vital signs: Vital Signs Temperature 98.1 F 01/30/21 23:36 Pulse Rate 54 L 01/30/21 23:36 Respiratory Rate 18 01/30/21 23:36 Blood Pressure 126/76 01/30/21 23:36 Pulse Oximetry 99 01/30/21 23:36 Discharge Plan Discharge Patient Disposition: Home Clinical Impression: Gingival abscess Condition: Stable Prescriptions: New penicillin V potassium 500 mg tablet 500 mg PO Q6H 14 Days Qty: 56 RF: 0 hydrocodone-acetaminophen 5-325 mg tablet 1 tab PO Q8H PRN (Reason: pain) Qty: 7 RF: 0 No Action dexamethasone sodium phosphate 4 mg/mL solution 4 mg IM ONCE Qty: 1 RF: 0 azithromycin 250 mg tablet See Rx Instructions PO .COMPLEX Qty: 6 RF: 0 albuterol sulfate [Ventolin HFA] 90 mcg/actuation HFA aerosol inhaler 1 inh inhalation QID Qty: 8.5 RF: 0 Discharge Orders: Discharge ED (Routine); Ordered 01/30/21 Ordered By: Sebastian Reyes Discharge Diet: Advance as tolerated Discharge Activity: Increase activity as tolerated Patient Instructions: Dental Abscess (ED), Opioid Safety Activity Restrictions/Additional Instructions: Follow-up with your dentist next week as scheduled. Antibiotics as directed. Pain medication as needed. Anti-inflammatory pain medication such as ibuprofen can help with swelling and pain. Coding Level of Care Code ED Contact [employer] Grinder for Kevin Fwd Exam Detailed
[2021-01-30 23:15] VITALS: RESP 18; O2SAT 99
[2021-01-30] MEDS: ketorolac 10 mg Tablet PO (23:15)
[2021-01-30] MEDS: oxyCODONE-APAP 5-325 mg Tablet 2 TAB PO (23:15)
[2021-01-30] MEDS: penicillin v potassium 250 mg Tablet 500 MG PO (23:15)
[2021-01-30 23:36] VITALS: BP 126/76; PULSE 54; RESP 18; TEMP 36.7; O2SAT 99
== END 2021-01-30 23:37 | disposition home or self-care (01) ==
PROVIDERS: Emergency Provider Emergency Medicine
DX: K05.319 Chronic periodontitis, localized, unspecified severity (principal); F17.200 Nicotine dependence, unspecified, uncomplicated
CPT/HCPCS: 99283

== ENCOUNTER 2022-06-17 13:21 | Emergency (ER) | payer MEDICAID, SELFPAY ==
[2022-06-17 13:52] VITALS: BP 111/77; PULSE 74; RESP 18; TEMP 37.1; O2SAT 99
--- NOTE | 2022-06-17 14:20 | W.ED.NAVMDI ---
Documented by User: LIZZY Dacosta 06/17/22 16:55 HPI - Nausea/Vomiting/Diarrhea General: Chief complaint: Nausea/Vomiting/Diarrhea Stated complaint: fever, n/v Time Seen by Provider: 06/17/22 14:13 History of Present Illness: Patient reports vomiting since Tuesday. She reports that she has vomited and been unable to keep any food or fluid down since Tuesday. She reports she is still urinating last BM was on Tuesday. She reports that she has been feeling very feverish but has not measured her fever. She reports that nobody else in her home is ill. She denies any possibility of stating that she had a tubal ligation in 2019. She denies any previous abdominal surgeries Associated nausea: Yes Associated symtoms: Reports nausea; Denies chest pain, dysuria, headache(s) or palpitations Review of Systems Const: Reports: fever(s), chills, body aches and change in appetite Card: Denies: chest pain, palpitations or irregular heart rhythm Resp: Denies: dyspnea, productive cough or non-productive cough GI: Reports: abdominal pain, nausea and vomiting; Denies: diarrhea or constipation : Denies: flank pain, difficulty voiding, dysuria, urinary frequency, urinary urgency or urinary hesitancy Neuro: Denies: headache(s) PFSH ED PFSH: Medical History (Updated 06/17/22 @ 17:54 by GABRIELLE Woodward) Aftercare following surgery of the genitourinary system Hepatitis C infection 05/01/2019: Hepatitis C antibody positive. 05/10/2019: Hepatitis C quantitative PCR: Negative. History of delivery First baby delivered at 36 weeks Second baby delivered at 34 weeks Both pregnancies Kat was used Trichomonal vaginitis during in first trimester Surgical History No history of previous surgery Family History Grandmother Diabetes maternal Family/Other Patient denies medical problems Denies family history of: breast/ovarian/uterine/colon/prostate cancer Social History Smoking and tobacco status: never smoked Alcohol intake: never Physical Exam Const: COMMON NORMALS: no acute distress, patient oriented x3 and alert Neck/C-Spine: COMMON NORMALS: no JVD Resp: COMMON NORMALS: normal respiratory effort, No use of accessory muscles and clear to auscultation bilaterally AUSCULTATION: clear to auscultation bilaterally Cardio: COMMON NORMALS: no JVD, regular rate, regular rhythm, S1 normal heart sound present and S2 normal heart sound present RATE: regular rate RHYTHM: regular rhythm HEART SOUNDS: S1 normal heart sound present and S2 normal heart sound present GI: COMMON NORMALS: Normal to inspection, nondistended, normoactive bowel sounds present and Soft to palpation PALPATION: Yes Soft to palpation and Yes Tenderness to palpation present (GI) Details: RUQ Neuro: COMMON NORMALS: patient oriented x3, moves all extremities and no focal motor deficits SENSORIUM/ORIENTATION: Yes alert Course Vital Signs: Vital signs: Vital Signs Temperature 98.7 F 06/17/22 13:52 Pulse Rate 74 06/17/22 13:52 Respiratory Rate 18 06/17/22 13:52 Blood Pressure 111/77 06/17/22 13:52 Pulse Oximetry 99 06/17/22 13:52 Oxygen Delivery Me thod 06/17/22 13:52 MDM - Nausea/Vomiting/Diarrhea Medical Decision Making Consider differentials gastroenteritis, cholecystitis, biliary colic Gallbladder ultrasound? CMP unremarkable Patient care transferred to Bernardino Lovell as my shift is ending Lab Data 06/17/22 14:52 06/17/22 14:52 Radiology Impressions Gallbladder Ultrasound 06/17/22 16:54 IMPRESSION: Solitary large gallstone with borderline thickened gallbladder wall and positive ultrasonic Villalba sign suggestive of acute cholecystitis. Laboratory Results WBC 13.7 10^3/uL (4.0-10.0) H 06/17/22 17:15 Corrected WBC Cancelled 06/17/22 14:52 RBC 3.73 10^6/uL (4.1-5.3) L 06/17/22 17:15 Hgb 10.7 g/dL (11.5-15.3) L 06/17/22 17:15 Hct 34.3 % (37.0-47.0) L 06/17/22 17:15 MCV 92.0 fl (81-99) 06/17/22 17:15 MCH 28.7 pg (28.0-34.0) 06/17/22 17:15 MCHC 31.2 g/dL (30.0-36.0) 06/17/22 17:15 RDW 13.2 % (12.1-15.1) 06/17/22 17:15 Plt Count 209 10^3/cmm (130-400) 06/17/22 17:15 MPV 10.3 fL (7.4-10.4) 06/17/22 17:15 Gran % Cancelled 06/17/22 14:52 Neut % (Auto) 83.5 % 06/17/22 17:15 Lymph % (Auto) 7.6 % 06/17/22 17:15 [place] % (Auto) 7.8 % 06/17/22 17:15 Eos % (Auto) 0.3 % 06/17/22 17:15 Baso % (Auto) 0.2 % 06/17/22 17:15 Neut # (Auto) 11.41 10^3/uL (1.8-7.7) H 06/17/22 17:15 Lymph # (Auto) 1.0 10^3/uL (0.8-4.8) 06/17/22 17:15 [place] # (Auto) 1.1 10^3/uL (0.2-0.9) H 06/17/22 17:15 Eos # (Auto) 0.0 10^3/uL (0.0-0.8) 06/17/22 17:15 Baso # (Auto) 0.0 10^3/uL (0.0-0.1) 06/17/22 17:15 Absolute Gran (auto) Cancelled 06/17/22 14:52 Nucleated RBC % (auto) 0 % 06/17/22 17:15 Nucleated RBCs # 0.0 /100WBC 06/17/22 17:15 Sodium 136 mmol/L (136-145) 06/17/22 14:52 Potassium 3.7 mmol/L (3.5-5.1) 06/17/22 14:52 Chloride 98 mmol/L (98-107) 06/17/22 14:52 Carbon Dioxide 23 mmol/L (22-29) 06/17/22 14:52 Anion Gap 18.7 (5-19) 06/17/22 14:52 BUN 13 mg/dL (6-20) 06/17/22 14:52 Creatinine 0.8 mg/dL (0.5-0.9) 06/17/22 14:52 GFR Calculation 82.6 mL/min (90-130) L 06/17/22 14:52 Glucose 78 mg/dL (65-115) 06/17/22 14:52 Calculated Osmolality 281 mOsm/kg (285-295) L 06/17/22 14:52 Calcium 8.9 mg/dL (8.5-10.5) 06/17/22 14:52 Total Bilirubin 0.5 mg/dL (0.15-1.2) 06/17/22 14:52 AST 20 U/L (0-32) 06/17/22 14:52 ALT 12 U/L (0-33) 06/17/22 14:52 Alkaline Phosphatase 122 U/L (35-105) H 06/17/22 14:52 Total Protein 7.5 g/dL (6.6-8.7) 06/17/22 14:52 Albumin 3.9 g/dL (3.5-5.2) 06/17/22 14:52 Globulin 3.6 g/dL (1.3-4.6) 06/17/22 14:52 Lipase 10 U/L (13-60) L 06/17/22 14:52 HCG, Qual Negative (Negative) 06/17/22 14:52 Discharge Plan Discharge Patient Disposition: Home Clinical Impression: Cholelithiasis and acute cholecystitis without obstruction Condition: Stable Prescriptions: New ciprofloxacin HCl 500 mg tablet 500 mg PO BID Qty: 10 0RF metronidazole 250 mg tablet 250 mg PO BID Qty: 10 0RF ondansetron 4 mg tablet,disintegrating 4 mg PO Q8H PRN (Reason: nausea and vomiting) Qty: 10 0RF hydrocodone-acetaminophen 5-325 mg tablet 1 tab PO Q6H PRN (Reason: pain (scale score 7-10)) Qty: 14 0RF Discontinued dexamethasone sodium phosphate 4 mg/mL solution 4 mg IM ONCE Qty: 1 0RF amoxicillin-pot clavulanate [Augmentin] 875-125 mg tablet 1 tab PO BID 10 Days Qty: 20 0RF No Action albuterol sulfate [Ventolin HFA] 90 mcg/actuation HFA aerosol inhaler 1 inh inhalation QID Qty: 8.5 0RF hydrocodone-acetaminophen 5-325 mg tablet 1 tab PO Q8H PRN (Reason: pain) Qty: 7 0RF Discharge Orders: Discharge ED (Routine); Ordered 06/17/22 Ordered By: Chris Lovell Discharge Diet: Advance as tolerated and Clear Liquid Discharge Activity: Increase activity as tolerated Patient Instructions: Gallstones (ED), Opioid Safety Activity Restrictions/Additional Instructions: Clear liquid diet until pain resolves. Take antibiotic medication as directed. Drink frequent sips of fluid to maintain hydration. Case management will contact you regarding follow-up with surgeon for further evaluation and treatment. Return to ER for worsening symptoms such as fever greater than 100.4, blood in vomit or stool, or uncontrolled pain. Sign Out Sign Out Data: Patient Sign Out occurred on 06/17/22 at 17:06. Patient's care was discussed, and care was transferred from to Chris Lovlel. Post-Handoff Eval: Patient continued to have pain but had not had any medication at this time for pain. Patient did report some improvement in nausea and vomiting. Coding Level of Care Code ED Health Science Instructor for Chg Fwd Exam Detailed Documented by User: GABRIELLE Woodward 06/17/22 18:14 HPI - Nausea/Vomiting/Diarrhea General: Chief complaint: Nausea/Vomiting/Diarrhea Stated complaint: fever, n/v Time Seen by Provider: 06/17/22 14:13 PFSH ED PFSH: Medical History (Updated 06/17/22 @ 17:54 by GABRIELLE Woodward) Aftercare following surgery of the genitourinary system Hepatitis C infection 05/01/2019: Hepatitis C antibody positive. 05/10/2019: Hepatitis C quantitative PCR: Negative. History of delivery First baby delivered at 36 weeks Second baby delivered at 34 weeks Both pregnancies Kat was used Trichomonal vaginitis during in first trimester Surgical History No history of previous surgery Family History Grandmother Diabetes maternal Family/Other Patient denies medical problems Denies family history of: breast/ovarian/uterine/colon/prostate cancer Social History Smoking and tobacco status: never smoked Alcohol intake: never Course Vital Signs: Vital signs: Vital Signs Temperature 98.7 F 06/17/22 13:52 Pulse Rate 74 06/17/22 13:52 Respiratory Rate 18 06/17/22 13:52 Blood Pressure 111/77 06/17/22 13:52 Pulse Oximetry 99 06/17/22 13:52 Oxygen Delivery Me thod 06/17/22 13:52 MDM - Nausea/Vomiting/Diarrhea Medical Decision Making Consider differentials gastroenteritis, cholecystitis, biliary colic Gallbladder ultrasound? CMP unremarkable Patient care transferred to Bernardino Lovell as my shift is ending Patient was treated with IV fluids, Zofran, Toradol and morphine for pain. Ultrasound gallbladder noted a large gallstone about 2 cm with some gallbladder wall thickening. CBC showed a white count of 13,000, CMP noted no elevation in bilirubin or AST and ALT's. Alk phos was elevated at 140s. Reviewed patient with Dr. Gonzalez with his recommendation for treatment for cholecystitis without signs of obstruction. Recommend follow-up with surgeon. Reviewed this with patient who agreed to plan. Lab Data 06/17/22 14:52 06/17/22 14:52 Radiology Impressions Gallbladder Ultrasound 06/17/22 16:54 IMPRESSION: Solitary large gallstone with borderline thickened gallbladder wall and positive ultrasonic Villalba sign suggestive of acute cholecystitis. Laboratory Results WBC 13.7 10^3/uL (4.0-10.0) H 06/17/22 17:15 Corrected WBC Cancelled 06/17/22 14:52 RBC 3.73 10^6/uL (4.1-5.3) L 06/17/22 17:15 Hgb 10.7 g/dL (11.5-15.3) L 06/17/22 17:15 Hct 34.3 % (37.0-47.0) L 06/17/22 17:15 MCV 92.0 fl (81-99) 06/17/22 17:15 MCH 28.7 pg (28.0-34.0) 06/17/22 17:15 MCHC 31.2 g/dL (30.0-36.0) 06/17/22 17:15 RDW 13.2 % (12.1-15.1) 06/17/22 17:15 Plt Count 209 10^3/cmm (130-400) 06/17/22 17:15 MPV 10.3 fL (7.4-10.4) 06/17/22 17:15 Gran % Cancelled 06/17/22 14:52 Neut % (Auto) 83.5 % 06/17/22 17:15 Lymph % (Auto) 7.6 % 06/17/22 17:15 [place] % (Auto) 7.8 % 06/17/22 17:15 Eos % (Auto) 0.3 % 06/17/22 17:15 Baso % (Auto) 0.2 % 06/17/22 17:15 Neut # (Auto) 11.41 10^3/uL (1.8-7.7) H 06/17/22 17:15 Lymph # (Auto) 1.0 10^3/uL (0.8-4.8) 06/17/22 17:15 [place] # (Auto) 1.1 10^3/uL (0.2-0.9) H 06/17/22 17:15 Eos # (Auto) 0.0 10^3/uL (0.0-0.8) 06/17/22 17:15 Baso # (Auto) 0.0 10^3/uL (0.0-0.1) 06/17/22 17:15 Absolute Gran (auto) Cancelled 06/17/22 14:52 Nucleated RBC % (auto) 0 % 06/17/22 17:15 Nucleated RBCs # 0.0 /100WBC 06/17/22 17:15 Sodium 136 mmol/L (136-145) 06/17/22 14:52 Potassium 3.7 mmol/L (3.5-5.1) 06/17/22 14:52 Chloride 98 mmol/L (98-107) 06/17/22 14:52 Carbon Dioxide 23 mmol/L (22-29) 06/17/22 14:52 Anion Gap 18.7 (5-19) 06/17/22 14:52 BUN 13 mg/dL (6-20) 06/17/22 14:52 Creatinine 0.8 mg/dL (0.5-0.9) 06/17/22 14:52 GFR Calculation 82.6 mL/min (90-130) L 06/17/22 14:52 Glucose 78 mg/dL (65-115) 06/17/22 14:52 Calculated Osmolality 281 mOsm/kg (285-295) L 06/17/22 14:52 Calcium 8.9 mg/dL (8.5-10.5) 06/17/22 14:52 Total Bilirubin 0.5 mg/dL (0.15-1.2) 06/17/22 14:52 AST 20 U/L (0-32) 06/17/22 14:52 ALT 12 U/L (0-33) 06/17/22 14:52 Alkaline Phosphatase 122 U/L (35-105) H 06/17/22 14:52 Total Protein 7.5 g/dL (6.6-8.7) 06/17/22 14:52 Albumin 3.9 g/dL (3.5-5.2) 06/17/22 14:52 Globulin 3.6 g/dL (1.3-4.6) 06/17/22 14:52 Lipase 10 U/L (13-60) L 06/17/22 14:52 HCG, Qual Negative (Negative) 06/17/22 14:52 Discharge Plan Discharge Patient Disposition: Home Clinical Impression: Cholelithiasis and acute cholecystitis without obstruction Condition: Stable Prescriptions: New ciprofloxacin HCl 500 mg tablet 500 mg PO BID Qty: 10 0RF metronidazole 250 mg tablet 250 mg PO BID Qty: 10 0RF ondansetron 4 mg tablet,disintegrating 4 mg PO Q8H PRN (Reason: nausea and vomiting) Qty: 10 0RF hydrocodone-acetaminophen 5-325 mg tablet 1 tab PO Q6H PRN (Reason: pain (scale score 7-10)) Qty: 14 0RF Discontinued dexamethasone sodium phosphate 4 mg/mL solution 4 mg IM ONCE Qty: 1 0RF amoxicillin-pot clavulanate [Augmentin] 875-125 mg tablet 1 tab PO BID 10 Days Qty: 20 0RF No Action albuterol sulfate [Ventolin HFA] 90 mcg/actuation HFA aerosol inhaler 1 inh inhalation QID Qty: 8.5 0RF hydrocodone-acetaminophen 5-325 mg tablet 1 tab PO Q8H PRN (Reason: pain) Qty: 7 0RF Discharge Orders: Discharge ED (Routine); Ordered 06/17/22 Ordered By: Chris Lovell Discharge Diet: Advance as tolerated and Clear Liquid Discharge Activity: Increase activity as tolerated Patient Instructions: Gallstones (ED), Opioid Safety Activity Restrictions/Additional Instructions: Clear liquid diet until pain resolves. Take antibiotic medication as directed. Drink frequent sips of fluid to maintain hydration. Case management will contact you regarding follow-up with surgeon for further evaluation and treatment. Return to ER for worsening symptoms such as fever greater than 100.4, blood in vomit or stool, or uncontrolled pain. Sign Out Sign Out Data: Patient Sign Out occurred on 06/17/22 at 17:06. Patient's care was discussed, and care was transferred from to Chris Lovell. Post-Handoff Eval: Patient continued to have pain but had not had any medication at this time for pain. Patient did report some improvement in nausea and vomiting. Coding Level of Care Code ED Health Science Instructor for Chg Fwd Exam Detailed
[2022-06-17] MEDS: ondansetron 2 mg/ML SDV 2 mL 4 MG IVP ×2 (14:50→18:26)
[2022-06-17] MEDS: sodium chloride 0.9% 1,000 ML 999 ML IV (14:50)
[2022-06-17 15:48] LABS: Albumin Level 3.9 g/dL (3.5-5.2); Alkaline Phosphatase 122 U/L (35-105); Blood Urea Nitrogen 13 mg/dL (6-20); Calcium 8.9 mg/dL (8.5-10.5); Carbon Dioxide 23 mmol/L (22-29); Chloride 98 mmol/L (98-107); Globulin 3.6 g/dL (1.3-4.6); Glomerular Filtration Rate 82.6 mL/min (90-130); Glucose 78 mg/dL (65-115); Lipase 10 U/L (13-60); Osmolality Calculated 281 mOsm/kg (285-295); Sodium 136 mmol/L (136-145); Total Bilirubin 0.5 mg/dL (0.15-1.2); Total Protein 7.5 g/dL (6.6-8.7)
[2022-06-17 15:56] LABS: HCG, Serum Qual Negative (Negative)
[2022-06-17 16:05] LABS: Alanine Aminotransferase 12 U/L (0-33); Anion Gap 18.7 (5-19); Aspartate Amino Transferase 20 U/L (0-32); Potassium 3.7 mmol/L (3.5-5.1)
--- NOTE | 2022-06-17 16:54 | USR_ITS ---
PROCEDURE INFORMATION: Exam: US Abdomen, Limited; Right Upper Quadrant Exam date and time: 06/17/2022 5:14 PM Age: 31 years old Clinical indication: Abdominal pain; Acute; Additional info: Ruq abdominal pain TECHNIQUE: Imaging protocol: Real time ultrasound of the abdomen with image documentation. Limited exam focused on the right upper quadrant. COMPARISON: CT kidney stone [id number] 01/13/2020 12:11 PM FINDINGS: Liver: Normal. No masses. Gallbladder: 2.4 cm solitary gallstone. Gallbladder wall is borderline thickened. Ultrasonic Villalba sign was reported as positive by the technologist. No nehemias cholecystic fluid. Biliary ducts: Normal. No stones. No dilation. Common bile duct measures 5 mm. Pancreas: Visualized pancreas is unremarkable. Right kidney: Normal. No mass. No hydronephrosis. US/US gall bladder [id number] IMPRESSION: Solitary large gallstone with borderline thickened gallbladder wall and positive ultrasonic Villalba sign suggestive of acute cholecystitis.
[2022-06-17 17:17] LABS: Basophils % 0.2 %; Eosinophils % 0.3 %; Hematocrit 34.3 % (37.0-47.0); Hemoglobin 10.7 g/dL (11.5-15.3); Lymphocytes % 7.6 %; Mean Corpuscular HGB Conc 31.2 g/dL (30.0-36.0); Mean Corpuscular Hemoglobin 28.7 pg (28.0-34.0); Mean Platelet Volume 10.3 fL (7.4-10.4); Monocytes # 1.1 10^3/uL (0.2-0.9); Monocytes % 7.8 %; Neutrophils # 11.41 10^3/uL (1.8-7.7); Neutrophils % 83.5 %; Nucleated Red Blood Cells % 0 %; Platelet Count 209 10^3/cmm (130-400); Red Blood Count 3.73 10^6/uL (4.1-5.3); Red Cell Distribution Width 13.2 % (12.1-15.1); White Blood Count 13.7 10^3/uL (4.0-10.0)
[2022-06-17] MEDS: metroNIDAZOLE 500 MG Tablet 250 MG PO (18:24)
[2022-06-17] MEDS: ciprofloxacin 500 mg Tablet PO (18:25)
[2022-06-17] MEDS: morphine 4 mg/mL SDV 1 mL IVP (18:26)
[2022-06-17] MEDS: ketorolac 30 mg/mL INJ 15 MG IVP (18:26)
--- NOTE | 2022-06-18 09:32 | DCPLANNER ---
Addendum entered by Paula Elizondo 06/23/22 14:35: shelter case manager called [facility] to confirm that clinic received patients information. shelter case manager was told that clinic did receive patients information. Patients information will be reviewed, clinic will call patient with appointment information. Addendum entered by Paula Elizondo 06/22/22 14:27: Due to patients insurance, patient can not be seen by [facility] provider. shelter case manager asked patient who she wanted to be referred to [facility] or [facility]. Patient stated that she would like to be referred to [facility]. shelter case manager faxed patients information to the [facility] clinic, who will call patient with appointment information. Original Note: shelter case manager had message to schedule a follow up appointment for patient with general surgery. shelter case manager sent patients information to the front office staff at general surgery. Patients information will be printed and reviewed. Clinic will call patient with appointment information.
== END 2022-06-17 18:40 | disposition home or self-care (01) ==
PROVIDERS: Nurse Practitioner Family; Emergency Provider Nurse Practitioner Family
DX: K80.00 Calculus of gallbladder with acute cholecystitis without obstruction (principal); Z86.19 Personal history of other infectious and parasitic diseases
CPT/HCPCS: 36415; 76705; 80053; 83690; 84703; 85025; 96361; 96374; 96375; 96376; 99285; J1885; J2270; J2405; J7030

== ENCOUNTER → 2023-05-19 12:16 | Outpatient (BNVA) | payer MEDICAID, SELFPAY | PROVIDERS: Visit Provider Obstetrics & Gynecology | DX: R10.2 Pelvic and perineal pain (principal); N83.202 Unspecified ovarian cyst, left side | CPT/HCPCS: 76830 ==

== ENCOUNTER 2023-11-23 07:17 | Emergency (ER) | payer MEDICAID, SELFPAY ==
[2023-11-23 07:57] VITALS: BP 131/88; PULSE 82; RESP 18; TEMP 36.7; O2SAT 99; BMI 29.2
[2023-11-23 10:55] VITALS: RESP 16; O2SAT 98
[2023-11-23] MEDS: morphine 4 mg/mL SDV 1 mL IVP ×2 (10:55→12:39)
[2023-11-23] MEDS: ondansetron 2 mg/ML SDV 2 mL 4 MG IVP (10:55)
[2023-11-23] MEDS: sodium chloride 0.9% 1,000 ML 999 ML IV (10:56)
[2023-11-23 10:57] LABS: Basophils # 0.1 10^3/uL (0.0-0.1); Eosinophils # 0.2 10^3/uL (0.0-0.8); Eosinophils % 2.4 %; Lymphocytes # 2.9 10^3/uL (0.8-4.8); Lymphocytes % 34.3 %; Mean Corpuscular HGB Conc 33.1 g/dL (30-55); Mean Corpuscular Hemoglobin 30.8 pg (27-33); Mean Platelet Volume 9.7 fL (7.4-10.4); Monocytes # 0.5 10^3/uL (0.2-0.9); Monocytes % 5.8 %; Neutrophils # 4.72 10^3/uL (1.8-7.7); Neutrophils % 56.3 %; Nucleated Red Blood Cells % 0 %; Platelet Count 329 10^3/cmm (157-399); Red Blood Count 4.84 10^6/uL (3.85-5.65); Red Cell Distribution Width 13.2 % (12.1-15.1); White Blood Count 8.39 10^3/uL (3.29-11.43)
--- NOTE | 2023-11-23 11:13 | CTR_ITS ---
PROCEDURE INFORMATION: Exam: CT Abdomen And Pelvis Without Contrast Exam date and time: 11/23/2023 11:27 AM Age: 33 years old Clinical indication: Pain; Other: Lower back; Prior surgery; Surgery date: 6+ months; Surgery type: Tubal, gb; Additional info: Flank pain TECHNIQUE: Imaging protocol: Computed tomography of the abdomen and pelvis without contrast. Radiation optimization: All CT scans at this facility use at least one of these dose optimization techniques: automated exposure control; mA and/or kV adjustment per patient size (includes targeted exams where dose is matched to clinical indication); or iterative reconstruction. COMPARISON: CT kidney stone [id number] 01/13/2020 12:11 PM RADIATION DOSE METRICS: Total DLP (mGy-cm): 625.47 FINDINGS: Liver: Normal. No mass. Gallbladder and bile ducts: Cholecystectomy. Pancreas: Normal. No ductal dilation. Spleen: Normal. No splenomegaly. Adrenal glands: Normal. No mass. Kidneys and ureters: Normal. No hydronephrosis. Stomach and bowel: Unremarkable. No obstruction. No mucosal thickening. Appendix: No evidence of appendicitis. Intraperitoneal space: Unremarkable. No free air. No significant fluid collection. Vasculature: Unremarkable. No abdominal aortic aneurysm. Lymph nodes: Unremarkable. No enlarged lymph nodes. Urinary bladder: Unremarkable as visualized. Reproductive: Unremarkable as visualized. Bones/joints: Unremarkable. No acute fracture. Soft tissues: Unremarkable. CT/CT kidney stone [id number] IMPRESSION: No acute subdiaphragmatic pathology.
--- NOTE | 2023-11-23 11:14 | ED_ITS ---
HPI - Back Pain/Injury 2 General: Chief Complaint: Back Pain/Injury Stated Complaint: abd pain, side pain Time Seen by Provider: 11/23/23 07:39 Source: patient Mode of arrival: ambulatory Limitations: no limitations History of Present Illness: 33-year-old female who states that she h as been having right-sided flank pain for the last week that is been intermittent in nature states she had some nausea and vomiting with this pain. Rates the pain a 7 out of 10 currently. Denies any dysuria Associated symptoms: Reports abdominal pain; Deny chills, dysuria, fever(s), nausea or vomiting Review of Systems 2 Const: Denies: fever(s), chills, body aches or change in appetite ENMT: Denies: throat pain or dental pain Card: Denies: chest pain Resp: Denies: dyspnea GI: Reports: abdominal pain; Denies: nausea, vomiting or diarrhea : Reports: flank pain; Denies: dysuria Musc: Denies: neck pain or back pain Skin/Breast: Denies: rash Neuro: Denies: headache(s) PFSH ED 2 PFSH: Medical History (Updated 11/23/23 @ 12:54 by Scott Miner MD) Aftercare following surgery of the genitourinary system Hepatitis C infection 05/01/2019: Hepatitis C antibody positive. 05/10/2019: Hepatitis C quantitative PCR: Negative. History of delivery First baby delivered at 36 weeks Second baby delivered at 34 weeks Both pregnancies [place] was used Trichomonal vaginitis during in first trimester Surgical History No history of previous surgery Family History Grandmother Diabetes maternal Family/Other Patient denies medical problems Denies family history of: breast/ovarian/uterine/colon/prostate cancer Female Reproductive History: Date of last menstrual period: 11/07/23 Physical Exam 2 Const: COMMON NORMALS: no acute distress, patient oriented x3 and healthy appearing HENMT: COMMON NORMALS: normocephalic and atraumatic HEAD & SCALP: n ormocephalic and atraumatic Neck/C-Spine: COMMON NORMALS: full ROM and supple Chest: COMMONS NORMALS: normal inspection of the chest Resp: COMMON NORMALS: normal respiratory effort Cardio: COMMON NORMALS: regular rate, regular rhythm and No murmurs present (Cardio) RATE: regular rate RHYTHM: regular rhythm GI: COMMON NORMALS: Normal to inspection, nondistended, normoactive bowel sounds present, Soft to palpation, non-tender and no masses PALPATION: Yes Soft to palpation Extremity: COMMON NORMALS: normal to inspection and full ROM Neuro: COMMON NORMALS: patient oriented x3, moves all extremities and no focal motor deficits Psych: COMMON NORMALS: mental status grossly normal, Normal thought process present and cooperative THOUGHT PROCESS: Normal thought process present Skin: COMMON NORMALS: no rashes or lesions noted and no wounds GENERAL SKIN EXAM: no rashes or lesions noted Course 2 Vital Signs: Vital signs: Vital Signs Temperature 98.0 F 11/23/23 07:57 Pulse Rate 66 11/23/23 11:59 Respiratory Rate 16 11/23/23 12:39 Blood Pressure 131/88 11/23/23 07:57 Pulse Oximetry 98 11/23/23 12:39 Oxygen Delivery Me thod Room Air 11/23/23 11:59 MDM - Back Pain/Injury Medical Decision Making Patient presents here with abdominal pain blood work CT scan here are all normal exam is benign she is stable for discharge we will prescribe her pain meds she is follow-up with PCP return if worsening she understands agrees to plan Medical Records I reviewed the patient's medical records. Labs I reviewed the patient's lab results. 11/23/23 10:50 11/23/23 10:50 Radiology Impressions Abdomen/Pelvis CT 11/23/23 11:13 IMPRESSION: No acute subdiaphragmatic pathology. Laboratory Results WBC 8.39 10^3/uL (3.29-11.43) 11/23/23 10:50 RBC 4.84 10^6/uL (3.85-5.65) 11/23/23 10:50 Hgb 14.90 g/dL (11.27-16.99) 11/23/23 10:50 Hct 45.0 % (36-47) 11/23/23 10:50 MCV 93.0 fl (85-98) 11/23/23 10:50 MCH 30.8 pg (27-33) 11/23/23 10:50 MCHC 33.1 g/dL (30-55) 11/23/23 10:50 RDW 13.2 % (12.1-15.1) 11/23/23 10:50 Plt Count 329 10^3/cmm (157-399) 11/23/23 10:50 MPV 9.7 fL (7.4-10.4) 11/23/23 10:50 Neut % (Auto) 56.3 % 11/23/23 10:50 Lymph % (Auto) 34.3 % 11/23/23 10:50 [place] % (Auto) 5.8 % 11/23/23 10:50 Eos % (Auto) 2.4 % 11/23/23 10:50 Baso % (Auto) 1.0 % 11/23/23 10:50 Neut # (Auto) 4.72 10^3/uL (1.8-7.7) 11/23/23 10:50 Lymph # (Auto) 2.9 10^3/uL (0.8-4.8) 11/23/23 10:50 [place] # (Auto) 0.5 10^3/uL (0.2-0.9) 11/23/23 10:50 Eos # (Auto) 0.2 10^3/uL (0.0-0.8) 11/23/23 10:50 Baso # (Auto) 0.1 10^3/uL (0.0-0.1) 11/23/23 10:50 Nucleated RBC % (auto) 0 % 11/23/23 10:50 Nucleated RBCs # 0.0 /100WBC 11/23/23 10:50 Sodium 139 mmol/L (136-145) 11/23/23 10:50 Potassium 4.5 mmol/L (3.5-5.1) 11/23/23 10:50 Chloride 102 mmol/L (98-107) 11/23/23 10:50 Carbon Dioxide 24 mmol/L (22-29) 11/23/23 10:50 Anion Gap 17.5 (5-19) 11/23/23 10:50 BUN 11 mg/dL (6-20) 11/23/23 10:50 Creatinine 0.7 mg/dL (0.5-0.9) 11/23/23 10:50 GFR Calculation 95.2 mL/min (90-130) 11/23/23 10:50 Glucose 86 mg/dL (65-115) 11/23/23 10:50 Calculated Osmolality 287 mOsm/kg (285-295) 11/23/23 10:50 Calcium 9.2 mg/dL (8.5-10.5) 11/23/23 10:50 Total Bilirubin 0.4 mg/dL (0.15-1.2) 11/23/23 10:50 AST 15 U/L (0-32) 11/23/23 10:50 ALT 14 U/L (0-33) 11/23/23 10:50 Alkaline Phosphatase 80 U/L (35-105) 11/23/23 10:50 Total Protein 7.4 g/dL (6.6-8.7) 11/23/23 10:50 Albumin 4.4 g/dL (3.5-5.2) 11/23/23 10:50 Globulin 3.0 g/dL (1.3-4.6) 11/23/23 10:50 Lipase 22 U/L (13-60) 11/23/23 10:50 HCG, Qual Negative (Negative) 11/23/23 10:50 Urine Color Yellow (Yellow) 11/23/23 11:58 Urine Appearance Clear (CLEAR) 11/23/23 11:58 Urine pH 7 (5-7) 11/23/23 11:58 Ur Specific [place] 1.005 (1.005-1.030) 11/23/23 11:58 Urine Protein Neg (Negative) 11/23/23 11:58 Urine Glucose (UA) Norm (Normal) 11/23/23 11:58 Urine Ketones Negative (Negative) 11/23/23 11:58 Urine Blood Neg (Negative) 11/23/23 11:58 Urine Nitrate Negative (Negative) 11/23/23 11:58 Urine Bilirubin Neg (Negative) 11/23/23 11:58 Urine Urobilinogen Norm mg/dL (Negative) 11/23/23 11:58 Ur Leukocyte Esterase Negative (Negative) 11/23/23 11:58 All radiology interpretation(s) finalized by discharge Discharge Plan Discharge Patient Disposition: Home Clinical Impression: Abdominal pain Condition: Stable Prescriptions: New hydrocodone-acetaminophen 5-325 mg tablet 1 tab PO Q6H PRN (Reason: pain) Qty: 14 0RF ondansetron 4 mg tablet,disintegrating 4 mg PO Q6H PRN (Reason: nausea and vomiting) Qty: 14 0RF No Action ibuprofen 800 mg tablet 800 mg PO TID Qty: 90 3RF Discharge Orders: Discharge ED (Routine); Ordered 11/23/23 Ordered By: Scott Miner Referrals: González Cueto MD [Primary Care Provider] - 4-7 days Discharge Diet: Advance as tolerated Discharge Activity: Resume usual activity Patient Instructions: Abdominal Pain (ED), Opioid Safety Coding Level of Care Code ED Education Research Analyst for Keivn Prince
[2023-11-23 11:17] LABS: Alanine Aminotransferase 14 U/L (0-33); Albumin Level 4.4 g/dL (3.5-5.2); Alkaline Phosphatase 80 U/L (35-105); Anion Gap 17.5 (5-19); Aspartate Amino Transferase 15 U/L (0-32); Blood Urea Nitrogen 11 mg/dL (6-20); Calcium 9.2 mg/dL (8.5-10.5); Carbon Dioxide 24 mmol/L (22-29); Chloride 102 mmol/L (98-107); Glomerular Filtration Rate 95.2 mL/min (90-130); Glucose 86 mg/dL (65-115); Lipase 22 U/L (13-60); Osmolality Calculated 287 mOsm/kg (285-295); Potassium 4.5 mmol/L (3.5-5.1); Sodium 139 mmol/L (136-145); Total Bilirubin 0.4 mg/dL (0.15-1.2); Total Protein 7.4 g/dL (6.6-8.7)
[2023-11-23 11:29] LABS: HCG, Serum Qual Negative (Negative)
[2023-11-23 11:59] VITALS: PULSE 66; RESP 16; O2SAT 98
[2023-11-23 12:01] LABS: Add Urine Microscopic? NO; Charge for UA Resulting for Rev
[2023-11-23 12:08] LABS: Bilirubin Urine Neg (Negative); Blood Urine Neg (Negative); Glucose Urine UA Norm (Normal); Ketones Urine Negative (Negative); Leukocyte Esterase Urine Negative (Negative); Nitrate Urine Negative (Negative); Protein Urine Neg (Negative); Specific Gravity, Urine 1.005 (1.005-1.030); Urine Appearance Clear (CLEAR); Urine Color Yellow (Yellow); Urobilinogen Urine Norm (Negative); pH Urine 7 (5-7)
[2023-11-23 12:39] VITALS: RESP 16; O2SAT 98
[2023-11-23 13:01] VITALS: BP 149/87; PULSE 69; RESP 165; O2SAT 99
== END 2023-11-23 13:02 | disposition home or self-care (01) ==
PROVIDERS: Emergency Provider Emergency Medicine; PCP Family Medicine
DX: R10.9 Unspecified abdominal pain (principal); Z86.19 Personal history of other infectious and parasitic diseases
CPT/HCPCS: 74176; 80053; 81003; 83690; 84703; 85025; 96361; 96374; 96375; 96376; 99285; J2270; J2405; J7030

== ENCOUNTER → 2024-01-02 10:18 | Outpatient (BNVA) | payer MEDICAID, SELFPAY | PROVIDERS: PCP Family Medicine; Visit Provider Obstetrics & Gynecology | DX: N83.202 Unspecified ovarian cyst, left side (principal); N83.291 Other ovarian cyst, right side | CPT/HCPCS: 76830 ==

== ENCOUNTER 2024-02-21 10:37 | Day surgery (SDC) | payer MEDICAID, SELFPAY ==
[2024-02-21] VITALS (11 sets, daily range): BP systolic 93–127; BP diastolic 56–87; PULSE 54–92; RESP 16–18; TEMP 36.2–36.5; O2SAT 95–100; BMI 29.0
[2024-02-21 11:13] LABS: Add Urine Microscopic? NO
[2024-02-21 11:15] LABS: Bilirubin Urine Neg (Negative); Blood Urine Neg (Negative); Glucose Urine UA Norm (Normal); Ketones Urine Negative (Negative); Leukocyte Esterase Urine Negative (Negative); Nitrate Urine Negative (Negative); Protein Urine Neg (Negative); Urine Appearance Clear (CLEAR); Urine Color Yellow (Yellow); Urobilinogen Urine Norm (Negative); pH Urine 6.5 (5-7)
[2024-02-21 11:17] LABS: Charge for UA Resulting for Rev
[2024-02-21] MEDS: sodium chloride 0.9% 500 ML IV (11:33)
[2024-02-21] MEDS: scopolamine 1.5 Patch 1 PATCH TRANSDERMA (11:34)
[2024-02-21] MEDS: ceFAZolin 2,000 mg SDV 2000 MG IVP ×2 (11:34→16:45)
[2024-02-21 11:42] LABS: Basophils # 0.1 10^3/uL (0.0-0.1); Basophils % 0.6 %; Eosinophils # 0.5 10^3/uL (0.0-0.8); Eosinophils % 6.5 %; Hematocrit 39.9 % (36-47); Lymphocytes # 2.8 10^3/uL (0.8-4.8); Mean Corpuscular HGB Conc 34.1 g/dL (30-55); Mean Corpuscular Hemoglobin 31.5 pg (27-33); Mean Corpuscular Volume 92.4 fl (85-98); Mean Platelet Volume 10.1 fL (7.4-10.4); Monocytes # 0.4 10^3/uL (0.2-0.9); Neutrophils % 52.6 %; Nucleated Red Blood Cells % 0 %; Platelet Count 267 10^3/cmm (157-399); Red Blood Count 4.32 10^6/uL (3.85-5.65); Red Cell Distribution Width 13.2 % (12.1-15.1); White Blood Count 7.98 10^3/uL (3.29-11.43)
[2024-02-21] MEDS: sodium chloride 0.9% 1,000 ML 30 ML IV (11:48)
[2024-02-21] MEDS: metroNIDAZOLE IV 500 MG/100 ML PREMIX 100 MG IV (11:51)
[2024-02-21 11:57] LABS: OR HCG Qualitative Urine Negative (Negative)
[2024-02-21 11:57] LABS: Alanine Aminotransferase 13 U/L (0-33); Albumin Level 4.1 g/dL (3.5-5.2); Alkaline Phosphatase 72 U/L (35-105); Anion Gap 16.6 (5-19); Aspartate Amino Transferase 15 U/L (0-32); Blood Urea Nitrogen 10 mg/dL (6-20); Calcium 8.1 mg/dL (8.5-10.5); Carbon Dioxide 21 mmol/L (22-29); Chloride 109 mmol/L (98-107); Creatinine Clr Calc Pharmacy 131.1537; Globulin 2.2 g/dL (1.3-4.6); Glomerular Filtration Rate 113.8 mL/min (90-130); Glucose 86 mg/dL (65-115); Osmolality Calculated 292 mOsm/kg (285-295); Potassium 4.6 mmol/L (3.5-5.1); Sodium 142 mmol/L (136-145); Total Bilirubin 0.3 mg/dL (0.15-1.2); Total Protein 6.3 g/dL (6.6-8.7)
--- NOTE | 2024-02-21 12:26 | W.PM.OPSUD ---
Surgery/Procedure H&P Update DATE OF PROCEDURE: February 21, 2024 DATE H&P PERFORMED: 02/20/24 H&P UPDATE INFORMATION: I have reviewed H&P completed within last 30 days, I have examined patient prior to procedure and No changes to prior documentation PREOP DIAGNOSIS: Chronic pelvic pain, small left complex ovarian cyst PLANNED PROCEDURE: Operation Date: 02/21/24 12:35 Proposed Procedures p Laparoscopy Diagnostic 06457, 04670, R10.2, N83.202(Not Applicable) - Frederick Jung MD s Laparoscopic Hand Assisted Cystectomy(Left) - Frederick Jung MD
[2024-02-21] MEDS: midazolam 1 mg/mL INJ 2 mL 2 MG IVP (15:10)
[2024-02-21] MEDS: BUPivacaine 0.5% INJ 10 mL INJECTION (17:41)
--- NOTE | 2024-02-21 18:04 | P.OP_ITS ---
Operative Report Date of procedure: February 21, 2024 Pre-op diagnosis: Pelvic pain Left ovarian cystic mass Post-op diagnosis: same Procedure done: Diagnostic laparoscopy Left laparoscopic left oophorectomy Specimens removed/disposition: Left ovary Surgeon: Frederick Jung MD Estimated blood loss (mL): 5 IV fluids (mL): 1,100 Urine output (mL): 25 Findings: Left ovarian cystectomy Procedure: After informed consent, the patient was taken to the operating room where general anesthesia was administered. The patient was examined under anesthesia and found to have a normal uterus with normal adnexa. She was placed in the dorsal lithotomy position and prepped and draped in sterile fashion. Pre- Procedure Time-Out verifying the correct patient identity, correct procedure verified with consent, correct site and side, correct patient position, availability of correct implants and any special equipment or requirements was performed and acknowledge by the OR team. A weighted speculum was placed in the vagina, and the anterior lip of cervix was grasped with the single toothed tenaculum. A uterine manipulator was advanced into the endocervical. Tenaculum was removed after uterine manipulator was secured. The speculum was removed from the vagina. An intraumbilical incision was made with a scalpel. While tenting up on the abdomen, a Verres needle with sleeve was admitted into the intra-abdominal cavity. A saline drop test was performed and noted to be within normal limits. Pneumoperitoneum was attained with 4 liters of carbon dioxide. The Verres needle was removed. A 5 mm trocar and sleeve were admitted into the abdomen and laparoscopic confirmation of location was achieved, A second incision was made 3 cm above the symphysis pubis, and a 5 mm trocar and sleeve were admitted into the abdomen under direct, laparoscopic visualization without complication. A survey revealed normal abdominal anatomy but pelvic survey shows normal uterus, and right adnexa. Left ovarian cystic mass was noted. A 5 mm blunt probe was advanced through the second trocar sleeve, and light manipulation of ovaries and uterus to assess the posterior aspects was performed. The left ovary was grasped at the infundibular ligament attachment with the LigaSure device. The left ovary was serially grasped sealed and cut from infundibulopelvic ligament and mesosalpinx with the LigaSure device. Then the 5 mm trocar placed above the symphysis was replaced by a 10 mm trocar. An Endobag was introduced into the cavity and the left ovary was placed in the Endobag and it was evacuated without complications. The instruments were removed, and skin cover with Dermabond. Carbon dioxide was allowed to escape from the abdomen. The suprapelvic incision was closed with 2-0 Vicryl and the umbilical incision was closed with 3-0 Vicryl with a pursestring stitch. Incision sites were infiltrated with 2% lidocaine with epinephrine. The instruments were removed from the vagina, and excellent hemostasis was noted. The patient tolerated the procedure well, and sponge, lap and needle count were correct times two. The patient taken to the recovery room in good condition.
--- NOTE | 2024-02-21 19:15 | ANE.PACU2 ---
Inpatient post-anesthesia follow up: Airway intact: Yes Vital signs: Temperature 97.4 F Pulse Rate 54 Respiratory Rate 18 Blood Pressure 101/56 Pulse Oximetry 98 Oxygen Delivery Me thod Room Air Oxygen Flow Rate Fraction of Inspir ed Oxygen Hydration adequate: Yes Nausea and vomiting: No Pain level: 1 Mental status: Baseline
--- NOTE | 2024-02-21 19:21 | PC.NURSE ---
alanis removed at 1910 today before discharge, 150ml clear yellow urine in bag.
== END 2024-02-21 19:19 | disposition home or self-care (01) ==
PROVIDERS: PCP Family Medicine; Visit Provider Obstetrics & Gynecology
PROC: (CPT 49320; principal; 2024-02-21 12:25)
PROC: (CPT 58661; 2024-02-21 12:25)
DX: N83.202 Unspecified ovarian cyst, left side (principal); F17.200 Nicotine dependence, unspecified, uncomplicated
CPT/HCPCS: 58661; 36415; 80053; 81003; 81025; 85025; 86850; 86900; 88305; J0131; J0690; J1100; J1200; J1885; J2250; J2405; J2704; J3010; J3490; J7030; J7040

== ENCOUNTER → 2024-03-21 13:27 | Outpatient (BNVA) | payer MEDICAID, SELFPAY | PROVIDERS: PCP Family Medicine; Visit Provider Nurse Practitioner | DX: R05.9 Cough, unspecified (principal) | CPT/HCPCS: 87426; 87880 ==

== ENCOUNTER 2024-03-27 07:59 | Emergency (ER) | payer MEDICAID, SELFPAY ==
[2024-03-27 08:16] VITALS: BP 142/79; PULSE 91; RESP 18; TEMP 36.7; O2SAT 97; BMI 29.5
--- NOTE | 2024-03-27 08:22 | XR_ITS ---
WS: [id number] Exam: XR chest 1V portable [id number] Date/Time of Exam: 03/27/2024 8:22 AM Reason For Exam: dyspnea/cough Comparison 09/08/2020. The lungs are fully expanded and clear. Normal cardiomediastinal silhouette and regional bony element s. No pleural effusion. XR/XR chest 1V portable [id number] IMPRESSION: 1. Negative chest.
--- NOTE | 2024-03-27 08:55 | ED_ITS ---
HPI - URI/Sore Throat General: Chief Complaint: Upper Respiratory Infection Stated Complaint: cough, congestion Time Seen by Provider: 03/27/24 08:21 History of Present Illness: Associated symptoms: Deny abdominal pain, chills, chest pain or fever(s) Related Data Home Medications Medication Instructions Recorded Confirmed calcium phosphate,dibasic 77 tab PO 02/13/24 03/21/24 mg-vitamin D3 400 unit tablet vitamin B complex 1 tab PO DAILY 02/13/24 03/21/24 Previous Rx's Medication Instructions Recorded acetaminophen 325 mg capsule 325 mg PO Q4H PRN fever or pain 02/21/24 #60 caps ibuprofen 800 mg tablet 800 mg PO TID PRN pain #60 tabs 02/21/24 azithromycin 500 mg tablet 500 mg PO DAILY 5 days #5 tabs 03/21/24 fluconazole 150 mg tablet 150 mg PO ONCE 1 dose #1 tab 03/21/24 prednisone 20 mg tablet 40 mg (2 x 20 mg) PO DAILY 5 days 03/21/24 #10 tabs Allergies Allergy/AdvReac Type Severity Reaction Status Date / Time No Known Allergies Allergy Verified 03/21/24 13:13 Review of Systems Const: Denies: fever(s) or chills Card: Denies: chest pain Resp: Denies: dyspnea GI: Denies: abdominal pain : Denies: dysuria, urinary frequency or urinary urgency Musc: Denies: neck pain or back pain Skin/Breast: Denies: rash PFSH ED PFSH: Medical History Aftercare following surgery of the genitourinary system Hepatitis C infection 05/01/2019: Hepatitis C antibody positive. 05/10/2019: Hepatitis C quantitative PCR: Negative. History of delivery First baby delivered at 36 weeks Second baby delivered at 34 weeks Both pregnancies Kal[place] was used Trichomonal vaginitis during in first trimester Surgical History History of laparoscopy (~02/21/24) Diagnostic laparoscopic with left oophorectomy performed by Erich at [facility] due to pelvic pain and left ovarian mass; Benign pathology. Family History Grandmother Diabetes maternal Family/Other Patient denies medical problems Denies family history of: breast/ovarian/uterine/colon/prostate cancer Social History Smoking and tobacco/nicotine status: current every day tobacco/nicotine user Physical Exam Const: GENERAL APPEARANCE: cooperative ORIENTATION/CONSCIOUSNESS: Yes awake, Yes oriented to person, Yes oriented to place and Yes oriented to time HENMT: COMMON NORMALS: normocephalic, atraumatic and hearing grossly normal bilaterally HEAD & SCALP: normocephalic and atraumatic Resp: COMMON NORMALS: normal respiratory effort, No retractions, No use of accessory muscles and clear to auscultation bilaterally AUSCULTATION: clear to auscultation bilaterally Cardio: COMMON NORMALS: regular rate, regular rhythm and No murmurs present (Cardio) RATE: regular rate RHYTHM: regular rhythm GI: COMMON NORMALS: Soft to palpation and No hepatosplenomegaly present AUSCULTATION: Yes normoactive bowel sounds PALPATION: Yes Soft to palpation, No Tenderness to palpation present (GI), No Guarding due to palpation present (GI) and Yes No hepatosplenomegaly present Extremity: COMMON NORMALS: normal to inspection, capillary refill normal, no clubbing, cyanosis or edema, no calf tenderness and no pedal edema Neuro: SENSORIUM/ORIENTATION: Yes oriented to person, Yes oriented to place and Yes oriented to time Skin: COMMON NORMALS: no rashes or lesions noted GENERAL SKIN EXAM: no rashes or lesions noted Course Vital Signs: Vital signs: Vital Signs Temperature 98.0 F 03/27/24 08:16 Pulse Rate 91 03/27/24 08:16 Respiratory Rate 18 03/27/24 08:16 Blood Pressure 142/79 03/27/24 08:16 Pulse Oximetry 97 03/27/24 08:16 Oxygen Delivery Me thod Room Air 03/27/24 08:16 MDM - URI/Sore Throat Lab Data Radiology Impressions Chest X-Ray 03/27/24 08:22 IMPRESSION: 1. Negative chest. Discharge Plan Discharge Condition: Stable Prescriptions: No Action fluconazole 150 mg tablet 150 mg PO ONCE Qty: 1 0RF Rx Instructions: take AFTER finishing antibiotics. prednisone 20 mg tablet 40 mg PO DAILY 5 Days Qty: 10 0RF azithromycin 500 mg tablet 500 mg PO DAILY 5 Days Qty: 5 0RF vitamin B complex Tablet 1 tab PO DAILY calcium phos,dibas-vitamin D3 77-400 mg-unit Tablet PO ibuprofen 800 mg tablet 800 mg PO TID PRN (Reason: pain) Qty: 60 0RF acetaminophen 325 mg capsule 325 mg PO Q4H PRN (Reason: fever or pain) Qty: 60 0RF Referrals: González Cueto MD [Primary Care Provider] - Coding Level of Care Code ED Patient Transport Officer for Kevin Prince
--- NOTE | 2024-03-27 09:21 | ED_ITS ---
HPI - URI/Sore Throat 2 General: Chief Complaint: Upper Respiratory Infection Stated Complaint: cough, congestion Time Seen by Provider: 03/27/24 08:21 Source: patient Mode of arrival: ambulatory Limitations: no limitations History of Present Illness: Patient is a 33-year-old female presents to ED today with a complaint of cough and difficulty breathing. She states 10 days ago she began having a nonproductive cough, chest congestion, rhinorrhea, nasal congestion, no sore throat. She was subsequently seen at urgent care and had a negative COVID and strep test performed. She states she was clinically diagnosed with pneumonia and placed on prednisone and azithromycin. Patient states she felt somewhat better while on the prednisone but is now worse again. She stated all of her other symptoms have resolved and she is left with a nonproductive cough. She feels like this is worse at night and when she lies down. She is not having a fever. She arrives in no acute distress with stable vital signs. She is an everyday smoker. States her children have been sick recently. MD elicited complaint: cough Onset (ago): day(s) Consistency: constant Severity: moderate Description of mucous: clear Able to tolerate fluids by mouth: Yes Relieving factors: nothing Context: sick contacts (children) Associated symptoms: Reports short of breath; Deny abdominal pain, chills, chest pain, diarrhea, ear or mastoid pain, fever(s), headache(s), nasal congestion, nausea, sinus pain or vomiting Related Data Home Medications Medication Instructions Recorded Confirmed calcium phosphate,dibasic 77 tab PO 02/13/24 03/21/24 mg-vitamin D3 400 unit tablet vitamin B complex 1 tab PO DAILY 02/13/24 03/21/24 Previous Rx's Medication Instructions Recorded acetaminophen 325 mg capsule 325 mg PO Q4H PRN fever or pain 02/21/24 #60 caps ibuprofen 800 mg tablet 800 mg PO TID PRN pain #60 tabs 02/21/24 azithromycin 500 mg tablet 500 mg PO DAILY 5 days #5 tabs 03/21/24 fluconazole 150 mg tablet 150 mg PO ONCE 1 dose #1 tab 03/21/24 prednisone 20 mg tablet 40 mg (2 x 20 mg) PO DAILY 5 days 03/21/24 #10 tabs albuterol sulfate 90 mcg/actuation 2 inh inhalation Q4H PRN shortness 03/27/24 aerosol inhaler of breath or wheezing #6.7 grams promethazine-DM 6.25 mg-15 mg/5 mL 5 ml PO Q6H PRN cough #100 mL 03/27/24 oral syrup Allergies Allergy/AdvReac Type Severity Reaction Status Date / Time No Known Allergies Allergy Verified 03/21/24 13:13 Review of Systems 2 Const: Denies: fever(s), chills, body aches, fatigue or malaise Eyes: Denies: change in vision or blurry vision ENMT: Denies: throat pain, odynophagia, ear or mastoid pain, nasal discharge, nasal congestion or sinus pain Card: Denies: chest pain, palpitations, syncope or pre-syncope Resp: Reports: dyspnea, non-productive cough and chest congestion; Denies: productive cough, change in phlegm color or hemoptysis GI: Denies: abdominal pain, nausea, vomiting or diarrhea Musc: Denies: back pain Neuro: Denies: headache(s) or dizziness PFSH ED 2 PFSH: Medical History Aftercare following surgery of the genitourinary system Hepatitis C infection 05/01/2019: Hepatitis C antibody positive. 05/10/2019: Hepatitis C quantitative PCR: Negative. History of delivery First baby delivered at 36 weeks Second baby delivered at 34 weeks Both pregnancies Kat was used Trichomonal vaginitis during in first trimester Surgical History History of laparoscopy (~02/21/24) Diagnostic laparoscopic with left oophorectomy performed by Erich at [facility] due to pelvic pain and left ovarian mass; Benign pathology. Family History Grandmother Diabetes maternal Family/Other Patient denies medical problems Denies family history of: breast/ovarian/uterine/colon/prostate cancer Social History Smoking and tobacco/nicotine status: current every day tobacco/nicotine user Physical Exam 2 Const: COMMON NORMALS: no acute distress, average body habitus, patient oriented x3, no limitations, healthy appearing, alert and well nourished HENMT: COMMON NORMALS: EAC's normal, TM's normal bilaterally and Normal external nose present FACE & SINUS: normal facial exam and sinuses nontender NOSE: Normal external nose present EXTERNAL AUDITORY CANAL: EAC's normal TYMPANIC MEMBRANE: TM's normal bilaterally MOUTH: Normal oral and palatal mucosa present and lip normal THROAT: posterior oropharynx normal and tonsils normal Eye: GENERAL EYE: appearance normal, both eyes and all related structures Neck/C-Spine: COMMON NORMALS: no lymphadenopathy Chest: COMMONS NORMALS: normal inspection of the chest and normal palpation of entire chest wall Resp: COMMON NORMALS: normal respiratory effort AUSCULTATION: other (course breath sounds throughout) Cardio: COMMON NORMALS: regular rate and regular rhythm RATE: regular rate RHYTHM: regular rhythm Neuro: COMMON NORMALS: patient oriented x3 SENSORIUM/ORIENTATION: Yes alert Course 2 Vital Signs: Vital signs: Vital Signs Temperature 98.0 F 03/27/24 08:16 Pulse Rate 87 03/27/24 10:24 Respiratory Rate 19 H 03/27/24 10:24 Blood Pressure 111/86 03/27/24 10:24 Pulse Oximetry 98 03/27/24 10:24 Oxygen Delivery Me thod Room Air 03/27/24 10:07 MDM - URI/Sore Throat Medical Decision Making Patient appears in no acute distress. Vital signs are stable. Her CXR is unremarkable. She was given a DuoNeb breathing treatment and IM Solu-Medrol. Respiratory panel collected and pending. Suspect viral etiology at this time. Will place her on an albuterol inhaler. No indication for additional antibiotics. She is requesting something to help with her cough as this is her most bothersome symptom. Return to ED precautions given. Otherwise she can follow-up with primary care later this week if symptoms do not seem to be improving. Differential Diagnosis Likely upper respiratory infection, croup, viral infection and bronchitis Medical Records I reviewed the patient's medical records. Lab Data 03/27/24 09:14 03/27/24 09:14 Radiology Impressions Chest X-Ray 03/27/24 08:22 IMPRESSION: 1. Negative chest. Laboratory Results WBC 7.73 10^3/uL (3.29-11.43) 03/27/24 09:14 RBC 4.80 10^6/uL (3.85-5.65) 03/27/24 09:14 Hgb 14.70 g/dL (11.27-16.99) 03/27/24 09:14 Hct 44.2 % (36-47) 03/27/24 09:14 MCV 92.1 fl (85-98) 03/27/24 09:14 MCH 30.6 pg (27-33) 03/27/24 09:14 MCHC 33.3 g/dL (30-55) 03/27/24 09:14 RDW 13.3 % (12.1-15.1) 03/27/24 09:14 Plt Count 320 10^3/cmm (157-399) 03/27/24 09:14 MPV 9.5 fL (7.4-10.4) 03/27/24 09:14 Neut % (Auto) 50.7 % 03/27/24 09:14 Lymph % (Auto) 38.2 % 03/27/24 09:14 [place] % (Auto) 7.1 % 03/27/24 09:14 Eos % (Auto) 2.7 % 03/27/24 09:14 Baso % (Auto) 0.8 % 03/27/24 09:14 Neut # (Auto) 3.92 10^3/uL (1.8-7.7) 03/27/24 09:14 Lymph # (Auto) 3.0 10^3/uL (0.8-4.8) 03/27/24 09:14 [place] # (Auto) 0.6 10^3/uL (0.2-0.9) 03/27/24 09:14 Eos # (Auto) 0.2 10^3/uL (0.0-0.8) 03/27/24 09:14 Baso # (Auto) 0.1 10^3/uL (0.0-0.1) 03/27/24 09:14 Nucleated RBC % (auto) 0 % 03/27/24 09:14 Nucleated RBCs # 0.0 /100WBC 03/27/24 09:14 Sodium 135 mmol/L (136-145) L 03/27/24 09:14 Potassium 4.2 mmol/L (3.5-5.1) 03/27/24 09:14 Chloride 101 mmol/L (98-107) 03/27/24 09:14 Carbon Dioxide 23 mmol/L (22-29) 03/27/24 09:14 Anion Gap 15.2 (5-19) 03/27/24 09:14 BUN 12 mg/dL (6-20) 03/27/24 09:14 Creatinine 0.7 mg/dL (0.5-0.9) 03/27/24 09:14 GFR Calculation 95.2 mL/min (90-130) 03/27/24 09:14 Glucose 82 mg/dL (65-115) 03/27/24 09:14 Calculated Osmolality 279 mOsm/kg (285-295) L 03/27/24 09:14 Calcium 8.6 mg/dL (8.5-10.5) 03/27/24 09:14 Total Bilirubin 0.4 mg/dL (0.15-1.2) 03/27/24 09:14 AST 29 U/L (0-32) 03/27/24 09:14 ALT 44 U/L (0-33) H 03/27/24 09:14 Alkaline Phosphatase 86 U/L (35-105) 03/27/24 09:14 Total Protein 6.9 g/dL (6.6-8.7) 03/27/24 09:14 Albumin 4.3 g/dL (3.5-5.2) 03/27/24 09:14 Globulin 2.6 g/dL (1.3-4.6) 03/27/24 09:14 All radiology interpretation(s) finalized by discharge Discharge Plan Discharge Patient Disposition: Home Clinical Impression: Bronchitis Condition: Stable Prescriptions: New promethazine-DM 6.25-15 mg/5 mL syrup 5 ml PO Q6H PRN (Reason: cough) Qty: 100 0RF albuterol sulfate 90 mcg/actuation HFA aerosol inhaler 2 inh INHALATION Q4H PRN (Reason: shortness of breath or wheezing) Qty: 6.7 0RF No Action fluconazole 150 mg tablet 150 mg PO ONCE Qty: 1 0RF Rx Instructions: take AFTER finishing antibiotics. prednisone 20 mg tablet 40 mg PO DAILY 5 Days Qty: 10 0RF azithromycin 500 mg tablet 500 mg PO DAILY 5 Days Qty: 5 0RF vitamin B complex Tablet 1 tab PO DAILY calcium phos,dibas-vitamin D3 77-400 mg-unit Tablet PO ibuprofen 800 mg tablet 800 mg PO TID PRN (Reason: pain) Qty: 60 0RF acetaminophen 325 mg capsule 325 mg PO Q4H PRN (Reason: fever or pain) Qty: 60 0RF Discharge Orders: Discharge ED (Routine); Ordered 03/27/24 Ordered By: Tiana Stringer Referrals: González Cueto MD [Primary Care Provider] - Patient Instructions: Upper Respiratory Infection (DC), Acute Bronchitis (ED) Activity Restrictions/Additional Instructions: As we discussed, your chest x-ray today was unremarkable. Respiratory panel has been collected and currently pending. You will be contacted with any positive results. Your blood work was unremarkable. You are given IM steroids prior to discharge. Will place you on an albuterol inhaler as well as give you something to help with your cough. Please follow-up with your primary care provider by the end of the week if symptoms do not seem to be improving. Coding Level of Care Code ED Potato Chip Packaging Machine Operator for Kevin Prince
[2024-03-27 09:22] LABS: Basophils # 0.1 10^3/uL (0.0-0.1); Basophils % 0.8 %; Eosinophils # 0.2 10^3/uL (0.0-0.8); Eosinophils % 2.7 %; Hematocrit 44.2 % (36-47); Lymphocytes % 38.2 %; Mean Corpuscular HGB Conc 33.3 g/dL (30-55); Mean Corpuscular Hemoglobin 30.6 pg (27-33); Mean Corpuscular Volume 92.1 fl (85-98); Mean Platelet Volume 9.5 fL (7.4-10.4); Monocytes # 0.6 10^3/uL (0.2-0.9); Monocytes % 7.1 %; Neutrophils # 3.92 10^3/uL (1.8-7.7); Neutrophils % 50.7 %; Nucleated Red Blood Cells % 0 %; Platelet Count 320 10^3/cmm (157-399); Red Cell Distribution Width 13.3 % (12.1-15.1); White Blood Count 7.73 10^3/uL (3.29-11.43)
[2024-03-27 09:42] LABS: Alanine Aminotransferase 44 U/L (0-33); Albumin Level 4.3 g/dL (3.5-5.2); Alkaline Phosphatase 86 U/L (35-105); Anion Gap 15.2 (5-19); Aspartate Amino Transferase 29 U/L (0-32); Blood Urea Nitrogen 12 mg/dL (6-20); Calcium 8.6 mg/dL (8.5-10.5); Carbon Dioxide 23 mmol/L (22-29); Chloride 101 mmol/L (98-107); Creatinine Clr Calc Pharmacy 113.3815; Globulin 2.6 g/dL (1.3-4.6); Glomerular Filtration Rate 95.2 mL/min (90-130); Glucose 82 mg/dL (65-115); Osmolality Calculated 279 mOsm/kg (285-295); Potassium 4.2 mmol/L (3.5-5.1); Sodium 135 mmol/L (136-145); Total Bilirubin 0.4 mg/dL (0.15-1.2); Total Protein 6.9 g/dL (6.6-8.7)
[2024-03-27 10:07] VITALS: PULSE 75; RESP 16; O2SAT 95
[2024-03-27] MEDS: ipratropium-albuterol 3 mL Neb INHALATION (10:07)
[2024-03-27 10:10] VITALS: PULSE 72
[2024-03-27] MEDS: methylPREDNISolone sod succ 125 mg/2 mL INJ IM (10:18)
[2024-03-27 10:24] VITALS: BP 111/86; PULSE 87; RESP 19; O2SAT 98
[2024-03-27 11:11] LABS: Adenovirus Not Detected (NOT DETECT); Chlamydia Pneumoniae Not Detected (NOT DETECT); Coronavirus 229E,HKU1,NL63,OC4 Not Detected (NOT DETECT); Human Metapneumovirus Not Detected (NOT DETECT); Human Rhinovirus/Enterovirus Detected (NOT DETECT); Influenza A Not Detected (NOT DETECT); Influenza A H1 Not Detected (NOT DETECT); Influenza A H1-2009 Not Detected (NOT DETECT); Influenza A H3 Not Detected (NOT DETECT); Influenza B Not Detected (NOT DETECT); Mycoplasma Pneumoniae Not Detected (NOT DETECT); Parainfluenza Virus Type 1 Not Detected (NOT DETECT); Parainfluenza Virus Type 2 Not Detected (NOT DETECT); Parainfluenza Virus Type 3 Not Detected (NOT DETECT); Parainfluenza Virus Type 4 Not Detected (NOT DETECT); Respiratory Syncytial Virus A Not Detected (NOT DETECT); Respiratory Syncytial Virus B Not Detected (NOT DETECT); SARS-COV-2 Not Detected (NOT DETECT)
== END 2024-03-27 10:25 | disposition home or self-care (01) ==
PROVIDERS: Family Medicine; Emergency Provider Physician Assistant; PCP Family Medicine
DX: J40 Bronchitis, not specified as acute or chronic (principal); Z72.0 Tobacco use
CPT/HCPCS: 71045; 80053; 85025; 87486; 87581; 87633; 94640; 96372; 99284; J2919

== ENCOUNTER 2024-04-19 17:29 | Emergency (ER) | payer MEDICAID, SELFPAY | END 2024-04-19 17:49 | disposition left against medical advice (07) | LOC: ER 17:30 | PROVIDERS: Emergency Provider Family Medicine; PCP Family Medicine | DX: Z53.21 Procedure and treatment not carried out due to patient leaving prior to being seen by health care provider (principal) ==

== ENCOUNTER 2024-04-21 08:06 | Emergency (ER) | payer MEDICAID, SELFPAY ==
[2024-04-21 08:24] VITALS: BP 122/72; PULSE 71; RESP 17; TEMP 36.8; O2SAT 100
--- NOTE | 2024-04-21 08:27 | ED_ITS ---
HPI - General Adult General: Stated complaint: puncture wond on R. hand Time Seen by Provider: 04/21/24 08:11 Source: patient Mode of arrival: ambulatory Limitations: no limitations History of Present Illness: 33-year-old female states she lacerated her right hand 2 days ago she had a small 1 cm laceration to webspace between her thumb and index finger. States she was seen and then had tissue adhesive placed but states that it is fallen off. She denies any pain denies any bleeding has no other injuries Associated symptoms: Deny chest pain, dyspnea, nausea, rash or vomiting Related Data Home Medications Medication Instructions Recorded Confirmed calcium phosphate,dibasic 77 tab PO 02/13/24 04/19/24 mg-vitamin D3 400 unit tablet vitamin B complex 1 tab PO DAILY 02/13/24 04/19/24 Previous Rx's Medication Instructions Recorded acetaminophen 325 mg capsule 325 mg PO Q4H PRN fever or pain 02/21/24 #60 caps ibuprofen 800 mg tablet 800 mg PO TID PRN pain #60 tabs 02/21/24 albuterol sulfate 90 mcg/actuation 2 inh inhalation Q4H PRN shortness 03/27/24 aerosol inhaler of breath or wheezing #6.7 grams Allergies Allergy/AdvReac Type Severity Reaction Status Date / Time No Known Allergies Allergy Verified 04/19/24 17:57 Review of Systems Const: Denies: fever(s) Card: Denies: chest pain Resp: Denies: dyspnea GI: Denies: abdominal pain, nausea, vomiting or diarrhea Musc: Denies: neck pain or back pain Skin/Breast: Denies: rash PFSH ED PFSH: Medical History Aftercare following surgery of the genitourinary system Hepatitis C infection 05/01/2019: Hepatitis C antibody positive. 05/10/2019: Hepatitis C quantitative PCR: Negative. History of delivery First baby delivered at 36 weeks Second baby delivered at 34 weeks Both pregnancies Kat was used Trichomonal vaginitis during in first trimester Surgical History History of laparoscopy (~02/21/24) Diagnostic laparoscopic with left oophorectomy performed by Erich at [facility] due to pelvic pain and left ovarian mass; Benign pathology. Family History Grandmother Diabetes maternal Family/Other Patient denies medical problems Denies family history of: breast/ovarian/uterine/colon/prostate cancer Social History Smoking and tobacco/nicotine status: unknown if used tobacco/nicotine Physical Exam Const: COMMON NORMALS: no acute distress, patient oriented x3 and healthy appearing HENMT: COMMON NORMALS: normocephalic and atraumatic HEAD & SCALP: normocephalic and atraumatic Eye: COMMON NORMALS: conjunctivae normal CONJUNCTIVA: Yes conjunctivae normal Neck/C-Spine: COMMON NORMALS: supple Chest: COMMONS NORMALS: normal inspection of the chest Resp: COMMON NORMALS: normal respiratory effort Extremity: COMMON NORMALS: full ROM NARRATIVE EXTREMITY EXAM: Small less than 1 cm laceration to webspace between thumb and index finger right hand no bleeding at this time Neuro: COMMON NORMALS: patient oriented x3, moves all extremities and no focal motor deficits Psych: COMMON NORMALS: mental status grossly normal, Normal thought process present and cooperative THOUGHT PROCESS: Normal thought process present Skin: COMMON NORMALS: no rashes or lesions noted GENERAL SKIN EXAM: no rashes or lesions noted [facility] - General Adult Medical Decision Making Patient presents here with laceration to right hand that is not bleeding is small does not require closure at this point can heal by secondary intention she is stable for discharge follow-up with PCP return if worsening Medical Records I reviewed the patient's medical records. No radiology studies performed this visit Discharge Plan Discharge Patient Disposition: Home Clinical Impression: Laceration of hand, right Condition: Stable Prescriptions: No Action vitamin B complex Tablet 1 tab PO DAILY calcium phos,dibas-vitamin D3 77-400 mg-unit Tablet PO ibuprofen 800 mg tablet 800 mg PO TID PRN (Reason: pain) Qty: 60 0RF acetaminophen 325 mg capsule 325 mg PO Q4H PRN (Reason: fever or pain) Qty: 60 0RF albuterol sulfate 90 mcg/actuation HFA aerosol inhaler 2 inh INHALATION Q4H PRN (Reason: shortness of breath or wheezing) Qty: 6.7 0RF Discharge Orders: Discharge ED (Routine); Ordered 04/21/24 Ordered By: Scott Miner Referrals: González Cueto MD [Primary Care Provider] - 4-7 days Discharge Diet: Advance as tolerated Discharge Activity: Resume usual activity Patient Instructions: Laceration (ED), Laceration Without Closure (ED) Coding Level of Care Code ED Music Engraver for Kevin Prince
[2024-04-21 08:28] VITALS: BP 118/71; PULSE 87; O2SAT 98
== END 2024-04-21 08:31 | disposition home or self-care (01) ==
PROVIDERS: Emergency Provider Emergency Medicine; PCP Family Medicine
DX: S61.411A Laceration without foreign body of right hand, initial encounter (principal); X58.XXXA Exposure to other specified factors, initial encounter
CPT/HCPCS: 99281

== ENCOUNTER → 2024-07-09 10:38 | Outpatient (BNVA) | payer MEDICAID, SELFPAY | PROVIDERS: PCP Family Medicine; Visit Provider Family Medicine | DX: R05.9 Cough, unspecified (principal) | CPT/HCPCS: 87400 ==